=== PATIENT | male | born 1935 | race Caucasian/White ===

== ENCOUNTER → 2017-07-27 09:58 | Outpatient (CLI) | payer MEDICARE, OTHER, SELFPAY ==
--- NOTE | 2017-07-27 | DI.US.S_ITS ---
PROCEDURE: US CAROTID DOPPLER BI INDICATIONS: I65.29 TECHNIQUE: Color and pulse Doppler interrogation was performed of both carotid systems, with image documentation and velocity measurements. COMPARISON: None. FINDINGS: Stenosis calculations are based on SRU (Society of Radiologists in Ultrasound) criteria. Right side: Brachial blood pressure: 159/91 mm Hg. Common carotid artery peak systolic velocity: 67 cm/sec. Internal carotid artery peak systolic velocity: 165 cm/sec. Internal carotid artery end diastolic velocity: 29 cm/sec. External carotid artery peak systolic velocity: 106 cm/sec. ICA/CCA peak systolic ratio: 2.45. Jeffries scale imaging description: Moderate echogenic plaque at the bifurcation Percent internal carotid artery stenosis: 50-69%. Vertebral artery: Flow direction is antegrade. Left side: Brachial blood pressure: 154/94 mm Hg. Common carotid artery peak systolic velocity: 96 cm/sec. Internal carotid artery peak systolic velocity: 85 cm/sec. Internal carotid artery end diastolic velocity: 24 cm/sec. External carotid artery peak systolic velocity: 81 cm/sec. ICA/CCA peak systolic ratio: 0.89. Jeffries scale imaging description: Moderate calcific plaque at the bifurcation Percent internal carotid artery stenosis: Less than 50%. Vertebral artery: Flow direction is antegrade. IMPRESSION: 1. 50-69% right internal carotid artery stenosis. 2. Less than 50% left internal carotid artery stenosis. 3. Antegrade vertebral artery flow bilaterally. Dictated by: Huy Ferrera M.D. on 07/27/2017 at 14:50 Approved by: Huy Ferrera M.D. on 07/27/2017 at 14:52
== END ==
PROVIDERS: Family Provider Neurological Surgery; PCP Internal Medicine; Visit Provider Internal Medicine
DX: I65.21 Occlusion and stenosis of right carotid artery (principal)
CPT/HCPCS: 93880

== ENCOUNTER 2018-06-06 19:16 | Emergency (ER) | payer MEDICARE, OTHER, SELFPAY ==
[2018-06-06 19:21] VITALS: BP 135/91; PULSE 83; RESP 18; TEMP 37.5; O2SAT 94; BMI 29.0
--- NOTE | 2018-06-06 20:33 | ED.FEVER ---
HPI - Fever General Chief Complaint: Fever Stated Complaint: FEVER, DECREASED MOBILITY, DENTAL PAIN Time Seen by Provider: 06/06/18 19:50 Source: patient and family Mode of arrival: ambulatory Limitations: no limitations History of Present Illness HPI Narrative: 82-year-old male former smoker presents with the chief complaint of a low-grade fever, some mild right-sided dental pain and feeling a bit under the weather for the past day or so. He has no headache or sore throat. He denies any facial pain or intraoral inflammation or drainage. He denies chest pain or shortness of breath. He has had no cough nor nausea, vomiting or diarrhea. He denies any abdominal pain nor dysuria, frequency or urgency. He does feel slightly constipated and has not had a solid bowel movement in the past day or 2. The 5 weeks ago the patient had a carotid endarterectomy while traveling in [place] and has done quite well in the aftermath. He denies any pain, swelling, redness or drainage overlying the surgical site. He denies any focal neurologic findings such as blurred vision, trouble with speech nor extremity numbness, weakness or tingling. MD complaint: fever Onset (ago): hour(s) Maximum Temperature: 101 F Temperature Source: oral Context: recent travel Associated symptoms: other (dental pain) Relieving factors: acetaminophen Exacerbating factors: nothing Treatments prior to arrival fever: acetaminophen Related Data Home Medications Medication Instructions Recorded Confirmed acetaminophen 1 tab PO PRN #0 10/28/10 07/11/17 aspirin [Aspirin Low Dose] 81 mg PO DAILY #0 08/05/12 07/11/17 esomeprazole magnesium [Nexium] 20 mg PO QDAY #0 08/05/12 07/11/17 sildenafil [Viagra] 25 mg PO PRN PRN #0 08/05/12 07/11/17 tamsulosin [Flomax] 0.4 mg PO HS #0 08/05/12 07/11/17 naproxen 250 mg PO Q12H PRN #0 01/26/16 07/11/17 Sustane Eye Drops 1 drp OPHTHALMIC (EYE) PRN PRN 07/11/17 07/11/17 epinephrine 0.3 ml IM PRN PRN 07/11/17 07/11/17 quinapril 20 mg PO QDAY 07/11/17 07/11/17 tadalafil [Cialis] 5 mg PO QDAY 07/11/17 07/11/17 Allergies Allergy/AdvReac Type Severity Reaction Status Date / Time No Known Drug Allergies Allergy Unknown UNKNOWN Unverified 06/14/17 12:03 ANAPHYLACTIC DRUG ALLERGY hydromorphone [HYDROMORPHONE] AdvReac Severe SEVERE Unverified 06/14/17 12:03 DROP IN BLOOD PRESSURE [id number] Reductase AdvReac Severe CRAMPS Unverified 06/14/17 12:03 Inhibitor [[id number] REDUCTASE INHIBITOR] Review of Systems Review of Systems ROS Unobtainable: All systems reviewed & are unremarkable except as noted in HPI and below Constitutional Denies chills, Reports fever(s), Denies lethargy and Reports weakness Eyes Denies change in vision, Denies eye discharge, Denies irritation and Denies loss of vision ENT Ears, Nose, Mouth, and Throat: Denies change in voice, Reports dental pain, Denies neck pain and Denies sore throat Cardiovascular Denies chest pain, Denies irregular heart rhythm, Denies lightheadedness, Denies palpitations, Denies dyspnea, Denies dyspnea on exertion and Denies orthopnea Respiratory Denies cough, Denies dyspnea, Denies dyspnea on exertion and Denies wheezing Gastrointestinal Gastrointestinal: Denies abdominal pain, Denies change in bowel habits, Denies diarrhea, Denies nausea and Denies vomiting Genitourinary Denies hematuria, Denies flank pain, Denies urinary incontinence and Denies urinary urgency Musculoskeletal Denies neck pain Integumentary/Breasts Denies pruritus, Denies erythema, Denies rash and Denies wounds Neurologic Denies confusion, Denies loss of vision and Reports weakness Psychiatric Denies anxiety, Denies confusion, Denies depression, Denies homicidal ideation and Denies suicidal ideation Endocrine Denies palpitations Hematologic/Lymphatic Denies easy bruising Allergic/Immunologic Denies wheezing PFSH Social History Smoking Status: Former smoker Social History Smoking Status: Former smoker Exam Narrative Exam Narrative: GENERAL: 82-year-old male appears stated age. He is in no obvious severe distress HEAD: Atraumatic. Normocephalic. No temporal or scalp tenderness. EYES: Pupils equal round and reactive. Extraocular motions intact. No scleral icterus. No injection or drainage. ENT: dry mucous membranes. Nose without bleeding, purulent drainage or septal hematoma. Throat without erythema, tonsillar hypertrophy or exudate. Uvula midline. Airway patent. NECK: Trachea midline. No JVD or lymphadenopathy. CEA incision is C/D/I. No pain, swelling, redness, warmth, or drainage/dehiscence CARDIOVASCULAR: Regular rate and rhythm without murmurs, gallops, or rubs. RESPIRATORY: Clear to auscultation. Breath sounds equal bilaterally. No wheezes, rales, or rhonchi. GASTROINTESTINAL: Abdomen soft, non-tender, nondistended. No hepato-splenomegaly, or palpable masses. No guarding. EXTREMITIES: No clubbing, cyanosis, or edema. No joint tenderness, effusion, or edema noted. BACK: Nontender without deformity or crepitance. No flank tenderness. NEURO: AOx3. SKIN: No rash or erythema. Initial Vital Signs Initial Vital Signs: Vital Signs Temperature 99.5 F 06/06/18 19:21 Pulse Rate 83 06/06/18 19:21 Respiratory Rate 18 06/06/18 19:21 Blood Pressure 135/91 H 06/06/18 19:21 Pulse Oximetry 94 06/06/18 19:21 Course Orders Ordered: ED Orders 06/06/18 20:40 XR acute abdomen series Stat 06/06/18 21:06 Basic Metabolic Panel Stat Complete Blood Count AUTO DIFF Stat Lactate (Lactic Acid) Stat Procalcitonin Stat 06/06/18 21:08 Influenza A and B by PCR Rapid Stat 06/06/18 21:50 Blood Culture Stat 06/06/18 23:14 Urine Microscopic Stat Discontinued Medications Sodium Chloride (Normal Saline 0.9%) 1,000 mls @ 1,000 mls/hr IV BOLUS ONE Stop: 06/06/18 21:38 Last Infusion: 06/06/18 22:49 Dose: 0 mls/hr Admin: 06/06/18 21:22 Dose: 1,000 mls/hr Ondansetron HCl (Zofran) 4 mg IV Q4HR PRN PRN Reason: Nausea And Vomiting Reevaluation(s) Reevaluation #1: Patient feels much better after above-stated therapies. He is able to ambulate to the bathroom without difficulty Vital Signs - 8 hr 06/06/18 21:39 06/06/18 22:00 06/06/18 22:30 Pulse Rate 69 66 65 Respiratory Rate 17 17 17 Blood Pressure [Right Arm] 123/78 139/76 153/83 H Pulse Oximetry 92 95 97 MDM - Fever Lab Data Result diagrams: 06/06/18 21:06 06/06/18 21:06 Lab Results 06/06/18 06/06/18 06/06/18 Range/Units 21:06 21:06 21:06 WBC 3.2 L (4.5-11.0) X10^3/uL RBC 4.98 (4.5-5.9) X10^6/uL Hgb 15.1 (13.5-17.5) g/dL Hct 45.0 (41-53) % MCV 90.5 (80-100) fL MCH 30.3 (26-34) PG MCHC 33.5 (30-36) % RDW 13.5 (11.6-14.8) % Plt Count 168 (150-400) X10^3/uL Neut % (Auto) 55.2 (50-75) % Lymph % (Auto) 31.3 (25-40) % [place] % (Auto) 12.1 (3-14) % Eos % (Auto) 0.9 L (2-4) % Baso % (Auto) 0.5 (0-2) % Neut # (Auto) 1800 (4110-5883) /uL Lymph # (Auto) 1000 L (0744-0676) /uL [place] # (Auto) 400 (0-900) /uL Eos # (Auto) 0 (0-450) /uL Baso # (Auto) 0 (0-100) /uL Sodium 138 (137-145) mmol/L Potassium 3.3 L (3.4-5.1) mmol/L Chloride 97 L (98-107) mmol/L Carbon Dioxide 33 H (22-32) mmol/L BUN 22 H (9-20) mg/dL Creatinine 0.90 (0.66-1.25) mg/dL Estimated GFR > 60.0 (>60) mL/min BUN/Creatinine Ratio 24.4 H (6-22) Glucose 117 H (80-110) mg/dL Lactate 1.0 (0.7-2.1) mmol/L Calcium 8.9 (8.4-10.2) mg/dL Procalcitonin (<0.5) ng/mL Urine RBC (0-5/HPF) Urine WBC (0-5/HPF) Urine Bacteria (None) Urine Mucus (Negative) Ur Culture Indicated? Influenza A & B (PCR) (Negative) 06/06/18 06/06/18 06/06/18 Range/Units 21:06 21:08 23:14 WBC (4.5-11.0) X10^3/uL RBC (4.5-5.9) X10^6/uL Hgb (13.5-17.5) g/dL Hct (41-53) % MCV (80-100) fL MCH (26-34) PG MCHC (30-36) % RDW (11.6-14.8) % Plt Count (150-400) X10^3/uL Neut % (Auto) (50-75) % Lymph % (Auto) (25-40) % [place] % (Auto) (3-14) % Eos % (Auto) (2-4) % Baso % (Auto) (0-2) % Neut # (Auto) (4225-0428) /uL Lymph # (Auto) (4350-0777) /uL [place] # (Auto) (0-900) /uL Eos # (Auto) (0-450) /uL Baso # (Auto) (0-100) /uL Sodium (137-145) mmol/L Potassium (3.4-5.1) mmol/L Chloride (98-107) mmol/L Carbon Dioxide (22-32) mmol/L BUN (9-20) mg/dL Creatinine (0.66-1.25) mg/dL Estimated GFR (>60) mL/min BUN/Creatinine Ratio (6-22) Glucose (80-110) mg/dL Lactate (0.7-2.1) mmol/L Calcium (8.4-10.2) mg/dL Procalcitonin 0.12 (<0.5) ng/mL Urine RBC 5-10/hpf H (0-5/HPF) Urine WBC None seen (0-5/HPF) Urine Bacteria None seen (None) Urine Mucus 2+ H (Negative) Ur Culture Indicated? Cult not indicated Influenza A & B (PCR) Negative (Negative) Urine Dip Bedside Urine Glucose Negative Bedside Urine Bilirubin - Negative Bedside Urine Ketone +/- 5 Urine Specific [place] 1.020 Bedside Urine Occult Blood ++ Bedside Urine pH 6.0 Bedside Urine Protein + 30 Bedside Urine Urobilinogen +/- 1mg Bedside Urine Nitrite - Negative Bedside Urine Leukocytes - Negative Esterase MDM Narrative Medical decision making narrative: 82-year-old male with low-grade fever and very minimal specific symptoms. odontogenic infection considered but there is no facial swelling, obvious dental abscess or drainage. postoperative complication of CEA considered but patient has no pain, focal neurologic deficits, redness, warmth or drainage overlying the incisions. Influenza considered but thought less likely given lack of findings. A pneumonia considered but thought less likely given lack of purulence cough or findings on chest x-ray. Urinary tract infection considered but thought less likely given lack of findings in urine. Most likely etiology at this point seems to be a viral infection, perhaps picked up while traveling home from [place]. Patient feels tremendous relief after receiving some IV fluids. Constipation is likely due to lack of appropriate hydration. Patient has been given extensive return precautions and both he and demonstrated their understanding of these precautions by their ability to recite them back. They plan to contact their PCP tomorrow for close follow up Discharge Plan Departure Patient Disposition: Home Clinical Impression: Fever of unknown origin, Systemic viral illness Discharge Date/Time: 06/07/18 00:15 Interventions: ED Discharge Assessment Last Done: 06/07/18 00:14 Instructions: Fever of Unknown Origin Activity Restrictions/Additional Instructions: *You have been diagnosed with [fever without definite source, likely viral origin ] *What to do: * continue to take medications as directed *Follow up with your primary care provider in 2-3 days, call for an appointment. Let them know you were seen in the Emergency Department and that we ask that you be seen in follow up *Return to ER if you should have any new, worsening or concerning symptoms, such as [shaking chills, chest pain, shortness of breath, vomiting, other bothersome symptoms ] Prescriptions: No Action acetaminophen 1 tab PO PRN Qty: 0 RF: 0 sildenafil [Viagra] 25 MG tablet 25 mg PO PRN PRN (Reason: Sexual Activity) Qty: 0 RF: 0 tamsulosin [Flomax] 0.4 MG capsule,extended release 24hr 0.4 mg PO HS Qty: 0 RF: 0 esomeprazole magnesium [Nexium] 40 MG capsule,delayed release(DR/EC) 20 mg PO QDAY Qty: 0 RF: 0 aspirin [Aspirin Low Dose] 81 mg Tablet,Delayed Release (Dr/Ec) 81 mg PO DAILY Qty: 0 RF: 0 naproxen 250 MG tablet 250 mg PO Q12H PRN (Reason: Pain, Mild) Qty: 0 RF: 0 epinephrine 0.3 mg/0.3 mL auto-injector 0.3 ml IM PRN PRN (Reason: Allergic Reaction) RF: 0 tadalafil [Cialis] 5 mg tablet 5 mg PO QDAY RF: 0 quinapril 20 mg tablet 20 mg PO QDAY RF: 0 Sustane Eye Drops drops 1 drp ophthalmic (eye) PRN PRN (Reason: Dry Eyes) RF: 0 Referrals: Ron Manriquez MD [Primary Care Provider] -
--- NOTE | 2018-06-06 20:40 | DI.RAD.S_ITS ---
PROCEDURE: XR ACUTE ABDOMEN SERIES INDICATIONS: constipation, fever, abdominal pain TECHNIQUE: One view chest and two views of the abdomen were acquired. COMPARISON: [facility], CR, XR CHEST 2 VIEWS, 02/08/2018, 10:00. [facility], CR, ABDOMEN 2 VIEW, 04/02/2015, 10:22. [facility], CR, ABDOMEN ACUTE SERIES, 03/30/2015, 17:30. FINDINGS: Surgical changes and devices: None. Chest: Lungs are clear. Heart size is normal. No pleural effusions. No pneumoperitoneum. Abdomen: Bowel gas pattern is within normal limits. There is a small to moderate amount of stool within the cecum and rectosigmoid colon suggestive of constipation. No definite evidence of bowel obstruction. No suspicious calcifications. Bones: No suspicious bony lesions. IMPRESSION: 1. Small to moderate amount of stool in the cecum and rectosigmoid colon compatible with patient's history of constipation. No definite evidence of bowel obstruction. Dictated by: Shivam Rossi M.D. on 06/06/2018 at 21:10 Approved by: Shivam Rossi M.D. on 06/06/2018 at 21:12
[2018-06-06] MEDS: SODIUM CHLORIDE 0.9% 1,000 ML 1000 ML IV (21:22)
[2018-06-06 21:27] LABS: Add Manual Diff / Slide Review NO; Basophils Absolute Auto 0 /uL (0-100); Basophils Percent Auto 0.5 % (0-2); Eosinophils Absolute Auto 0 /uL (0-450); Eosinophils Percent Auto 0.9 % (2-4); Hemoglobin 15.1 g/dL (13.5-17.5); Lymphocytes Absolute Auto 1000 /uL (1100-4500); Lymphocytes Percent Auto 31.3 % (25-40); Mean Corpuscular HGB Conc 33.5 % (30-36); Mean Corpuscular Hemoglobin 30.3 PG (26-34); Mean Corpuscular Volume 90.5 fL (80-100); Monocytes Absolute Auto 400 /uL (0-900); Monocytes Percent Auto 12.1 % (3-14); Neutrophils Absolute Auto 1800 /uL (1500-7000); Neutrophils Percent Auto 55.2 % (50-75); Platelet Count 168 X10^3/uL (150-400); Red Blood Cell Count 4.98 X10^6/uL (4.5-5.9); Red Cell Distribution Width 13.5 % (11.6-14.8); White Blood Cell Count 3.2 X10^3/uL (4.5-11.0)
[2018-06-06 21:35] LABS: BUN Creatinine Ratio 24.4 (6-22); Blood Urea Nitrogen 22 mg/dL (9-20); Calcium 8.9 mg/dL (8.4-10.2); Carbon Dioxide 33 mmol/L (22-32); Chloride 97 mmol/L (98-107); Estimated Glomerular Filt Rate > 60.0 mL/min (>60); Glucose 117 mg/dL (80-110); HEMOLYSIS 15 (0-50); Potassium 3.3 mmol/L (3.4-5.1); Sodium 138 mmol/L (137-145)
[2018-06-06 21:39] VITALS: BP 123/78; PULSE 69; RESP 17; O2SAT 92
[2018-06-06 21:53] LABS: Influenza A and B by PCR Rapid Negative (Negative)
[2018-06-06 21:55] LABS: Procalcitonin 0.12 ng/mL (<0.5)
[2018-06-06 22:00] VITALS: BP 139/76; PULSE 66; RESP 17; O2SAT 95
[2018-06-06 22:30] VITALS: BP 153/83; PULSE 65; RESP 17; O2SAT 97
[2018-06-06 23:15] LABS: Bacteria Urine None Seen; WBC Urine None Seen (0-5/HPF)
[2018-06-06 23:55] LABS: RBC Urine 5-10/HPF (0-5/HPF)
[2018-06-06 23:56] LABS: Culture Indicated Urine Cult Not Indicated; Mucus Urine 2+ (Negative)
--- NOTE | 2018-06-07 03:58 | ED_ITS ---
HPI - Fever General Chief Complaint: Fever Stated Complaint: FEVER, DECREASED MOBILITY, DENTAL PAIN Time Seen by Provider: 06/06/18 19:50 Source: patient and family Mode of arrival: ambulatory Limitations: no limitations History of Present Illness HPI Narrative: 82-year-old male former smoker presents with the chief complaint of a low-grade fever, some mild right-sided dental pain and feeling a bit under the weather for the past day or so. He has no headache or sore throat. He denies any facial pain or intraoral inflammation or drainage. He denies chest pain or shortness of breath. He has had no cough nor nausea, vomiting or diarrhea. He denies any abdominal pain nor dysuria, frequency or urgency. He d oes feel slightly constipated and has not had a solid bowel movement in the past day or 2. The 5 weeks ago the patient had a carotid endarterectomy while traveling in [place] and has done quite well in the aftermath. He denies any pain, swelling, redness or drainage overlying the surgical site. He denies any focal neurologic findings such as blurred vision, trouble with speech nor extremity numbness, weakness or tingling. MD complaint: fever Onset (ago): hour(s) Maximum Temperature: 101 F Temperature Source: oral Context: recent travel Associated symptoms: other (dental pain) Relieving factors: acetaminophen Exacerbating factors: nothing Treatments prior to arrival fever: acetaminophen Related Data Home Medications Medication Instructions Recorded Confirmed acetaminophen 1 tab PO PRN #0 10/28/10 07/11/17 aspirin [Aspirin Low Dose] 81 mg PO DAILY #0 08/05/12 07/11/17 esomeprazole magnesium [Nexium] 20 mg PO QDAY #0 08/05/12 07/11/17 sildenafil [Viagra] 25 mg PO PRN PRN #0 08/05/12 07/11/17 tamsulosin [Flomax] 0.4 mg PO HS #0 08/05/12 07/11/17 naproxen 250 mg PO Q12H PRN #0 01/26/16 07/11/17 Sustane Eye Drops 1 drp OPHTHALMIC (EYE) PRN PRN 07/11/17 07/11/17 epinephrine 0.3 ml IM PRN PRN 07/11/17 07/11/17 quinapril 20 mg PO QDAY 07/11/17 07/11/17 tadalafil [Cialis] 5 mg PO QDAY 07/11/17 07/11/17 Allergies Allergy/AdvReac Type Severity Reaction Status Date / Time No Known Drug Allergies Allergy Unknown UNKNOWN Unverified 06/14/17 12:03 ANAPHYLACTIC DRUG ALLERGY hydromorphone [HYDROMORPHONE] AdvReac Severe SEVERE Unverified 06/14/17 12:03 DROP IN BLOOD PRESSURE Fhpzles-Ptq-Wgn Reductase AdvReac Severe CRAMPS Unverified 06/14/17 12:03 Inhibitor [[id number] REDUCTASE INHIBITOR] Review of Systems Review of Systems ROS Unobtainable: All systems reviewed & are unremarkable except as noted in HPI and below Constitutional Denies chills, Reports fever(s), Denies lethargy and Reports weakness Eyes Denies change in vision, Denies eye discharge, Denies irritation and Denies loss of vision ENT Ears, Nose, Mouth, and Throat: Denies change in voice, Reports dental pain, Denies neck pain and Denies sore throat Cardiovascular Denies chest pain, Denies irregular heart rhythm, Denies lightheadedness, Denies palpitations, Denies dyspnea, Denies dyspnea on exertion and Denies orthopnea Respiratory Denies cough, Denies dyspnea, Denies dyspnea on exertion and Denies wheezing Gastrointestinal Gastrointestinal: Denies abdominal pain, Denies change in bowel habits, Denies diarrhea, Denies nausea and Denies vomiting Genitourinary Denies hematuria, Denies flank pain, Denies urinary incontinence and Denies uri nary urgency Musculoskeletal Denies neck pain Integumentary/Breasts Denies pruritus, Denies erythema, Denies rash and Denies wounds Neurologic Denies confusion, Denies loss of vision and Reports weakness Psychiatric Denies anxiety, Denies confusion, Denies depression, Denies homicidal ideation and Denies suicidal ideation Endocrine Denies palpitations Hematologic/Lymphatic Denies easy bruising Allergic/Immunologic Denies wheezing PFSH Social History Smoking Status: Former smoker Social History Smoking Status: Former smoker Exam Narrative Exam Narrative: GENERAL: 82-year-old male appears stated age. He is in no obvious severe distress HEAD: Atraumatic. Normocephalic. No temporal or scalp tenderness. EYES: Pupils equal round and reactive. Extraocular motions intact. No scleral icterus. No injection or drainage. ENT: dry mucous membranes. Nose without bleeding, purulent drainage or septal hematoma. Throat without erythema, tonsillar hypertrophy or exudate. Uvula mi dline. Airway patent. NECK: Trachea midline. No JVD or lymphadenopathy. CEA incision is C/D/I. No pa in, swelling, redness, warmth, or drainage/dehiscence CARDIOVASCULAR: Regular rate and rhythm without murmurs, gallops, or rubs. RESPIRATORY: Clear to auscultation. Breath sounds equal bilaterally. No wheezes, rales, or rhonchi. GASTROINTESTINAL: Abdomen soft, non-tender, nondistended. No hepato- splenomegaly, or palpable masses. No guarding. EXTREMITIES: No clubbing, cyanosis, or edema. No joint tenderness, effusion, or edema noted. BACK: Nontender without deformity or crepitance. No flank tenderness. NEURO: AOx3. SKIN: No rash or erythema. Initial Vital Signs Initial Vital Signs: Vital Signs Temperature 99.5 F 06/06/18 19:21 Pulse Rate 83 06/06/18 19:21 Respiratory Rate 18 06/06/18 19:21 Blood Pressure 135/91 H 06/06/18 19:21 Pulse Oximetry 94 06/06/18 19:21 Course Orders Ordered: ED Orders 06/06/18 20:40 XR acute abdomen series Stat 06/06/18 21:06 Basic Metabolic Panel Stat Complete Blood Count AUTO DIFF Stat Lactate (Lactic Acid) Stat Procalcitonin Stat 06/06/18 21:08 Influenza A and B by PCR Rapid Stat 06/06/18 21:50 Blood Culture Stat 06/06/18 23:14 Urine Microscopic Stat Discontinued Medications Sodium Chloride (Normal Saline 0.9%) 1,000 mls @ 1,000 mls/hr IV BOLUS ONE Stop: 06/06/18 21:38 Last Infusion: 06/06/18 22:49 Dose: 0 mls/hr Admin: 06/06/18 21:22 Dose: 1,000 mls/hr Ondansetron HCl (Zofran) 4 mg IV Q4HR PRN PRN Reason: Nausea And Vomiting Reevaluation(s) Reevaluation #1: Patient feels much better after above-stated therapies. He is able to ambulate to the bathroom without difficulty Vital Signs - 8 hr 06/06/18 21:39 06/06/18 22:00 06/06/18 22:30 Pulse Rate 69 66 65 Respiratory Rate 17 17 17 Blood Pressure [Right Arm] 123/78 139/76 153/83 H Pulse Oximetry 92 95 97 MDM - Fever Lab Data Result diagrams: 06/06/18 21:06 06/06/18 21:06 Lab Results 06/06/18 06/06/18 06/06/18 Range/Units 21:06 21:06 21:06 WBC 3.2 L (4.5-11.0) X10^3/uL RBC 4.98 (4.5-5.9) X10^6/uL Hgb 15.1 (13.5-17.5) g/dL Hct 45.0 (41-53) % MCV 90.5 (80-100) fL MCH 30.3 (26-34) PG MCHC 33.5 (30-36) % RDW 13.5 (11.6-14.8) % Plt Count 168 (150-400) X10^3/uL Neut % (Auto) 55.2 (50-75) % Lymph % (Auto) 31.3 (25-40) % [place] % (Auto) 12.1 (3-14) % Eos % (Auto) 0.9 L (2-4) % Baso % (Auto) 0.5 (0-2) % Neut # (Auto) 1800 (3284-4144) /uL Lymph # (Auto) 1000 L (5987-4875) /uL [place] # (Auto) 400 (0-900) /uL Eos # (Auto) 0 (0-450) /uL Baso # (Auto) 0 (0-100) /uL Sodium 138 (137-145) mmol/L Potassium 3.3 L (3.4-5.1) mmol/L Chloride 97 L (98-107) mmol/L Carbon Dioxide 33 H (22-32) mmol/L BUN 22 H (9-20) mg/dL Creatinine 0.90 (0.66-1.25) mg/dL Estimated GFR > 60.0 (>60) mL/min BUN/Creatinine Ratio 24.4 H (6-22) Glucose 117 H (80-110) mg/dL Lactate 1.0 (0.7-2.1) mmol/L Calcium 8.9 (8.4-10.2) mg/dL Procalcitonin (<0.5) ng/mL Urine RBC (0-5/HPF) Urine WBC (0-5/HPF) Urine Bacteria (None) Urine Mucus (Negative) Ur Culture Indicated? Influenza A & B (PCR) (Negative) 06/06/18 06/06/18 06/06/18 Range/Units 21:06 21:08 23:14 WBC (4.5-11.0) X10^3/uL RBC (4.5-5.9) X10^6/uL Hgb (13.5-17.5) g/dL Hct (41-53) % MCV (80-100) fL MCH (26-34) PG MCHC (30-36) % RDW (11.6-14.8) % Plt Count (150-400) X10^3/uL Neut % (Auto) (50-75) % Lymph % (Auto) (25-40) % [place] % (Auto) (3-14) % Eos % (Auto) (2-4) % Baso % (Auto) (0-2) % Neut # (Auto) (1061-0484) /uL Lymph # (Auto) (4311-7472) /uL [place] # (Auto) (0-900) /uL Eos # (Auto) (0-450) /uL Baso # (Auto) (0-100) /uL Sodium (137-145) mmol/L Potassium (3.4-5.1) mmol/L Chloride (98-107) mmol/L Carbon Dioxide (22-32) mmol/L BUN (9-20) mg/dL Creatinine (0.66-1.25) mg/dL Estimated GFR (>60) mL/min BUN/Creatinine Ratio (6-22) Glucose (80-110) mg/dL Lactate (0.7-2.1) mmol/L Calcium (8.4-10.2) mg/dL Procalcitonin 0.12 (<0.5) ng/mL Urine RBC 5-10/hpf H (0-5/HPF) Urine WBC None seen (0-5/HPF) Urine Bacteria None seen (None) Urine Mucus 2+ H (Negative) Ur Culture Indicated? Cult not indicated Influenza A & B (PCR) Negative (Negative) Urine Dip Bedside Urine Glucose Negative Bedside Urine Bilirubin - Negative Bedside Urine Ketone +/- 5 Urine Specific [place] 1.020 Bedside Urine Occult Blood ++ Bedside Urine pH 6.0 Bedside Urine Protein + 30 Bedside Urine Urobilinogen +/- 1mg Bedside Urine Nitrite - Negative Bedside Urine Leukocytes - Negative Esterase MDM Narrative Medical decision making narrative: 82-year-old male with low-grade fever and very minimal specific symptoms. odontogenic infection considered but there is no facial swelling, obvious dental abscess or drainage. postoperative complication of CEA considered but patient has no pain, focal neurologic deficits, redness, warmth or drainage overlying the incisions. Influenza considered but thought less likely given lack of findings. A pneumonia considered but thought less likely given lack of purulence cough or findings on chest x-ray. Urinary tract infection considered but thought less likely given lack of findings in urine. Most likely etiology at this point seems to be a viral infection, perhaps picked up while traveling home from [place]. Patient feels tremendous relief after receiving some IV fluids. Constipation is likely due to lack of appropriate hydration. Patient has been given extensive return precautions and both he and demonstrated their understanding of these precautions by their ability to recite them back. They plan to contact their PCP tomorrow for close follow up Discharge Plan Departure Patient Disposition: Home Clinical Impression: Fever of unknown origin, Systemic viral illness Discharge Date/Time: 06/07/18 00:15 Interventions: ED Discharge Assessment Last Done: 06/07/18 00:14 Instructions: Fever of Unknown Origin Activity Restrictions/Additional Instructions: *You have been diagnosed with [fever without definite source, likely viral origin ] *What to do: * continue to take medications as directed *Follow up with your primary care provider in 2-3 days, call for an appointment. Let them know you were seen in the Emergency Department and that we ask that you be seen in follow up *Return to ER if you should have any new, worsening or concerning symptoms, such as [shaking chills, chest pain, shortness of breath, vomiting, other bothersome symptoms ] Prescriptions: No Action acetaminophen 1 tab PO PRN Qty: 0 RF: 0 sildenafil [Viagra] 25 MG tablet 25 mg PO PRN PRN (Reason: Sexual Activity) Qty: 0 RF: 0 tamsulosin [Flomax] 0.4 MG capsule,extended release 24hr 0.4 mg PO HS Qty: 0 RF: 0 esomeprazole magnesium [Nexium] 40 MG capsule,delayed release(DR/EC) 20 mg PO QDAY Qty: 0 RF: 0 aspirin [Aspirin Low Dose] 81 mg Tablet,Delayed Release (Dr/Ec) 81 mg PO DAILY Qty: 0 RF: 0 naproxen 250 MG tablet 250 mg PO Q12H PRN (Reason: Pain, Mild) Qty: 0 RF: 0 epinephrine 0.3 mg/0.3 mL auto-injector 0.3 ml IM PRN PRN (Reason: Allergic Reaction) RF: 0 tadalafil [Cialis] 5 mg tablet 5 mg PO QDAY RF: 0 quinapril 20 mg tablet 20 mg PO QDAY RF: 0 Sustane Eye Drops drops 1 drp ophthalmic (eye) PRN PRN (Reason: Dry Eyes) RF: 0 Referrals: Ron Manriquez MD [Primary Care Provider] -
== END 2018-06-07 00:15 | disposition home or self-care (01) ==
PROVIDERS: Emergency Provider Emergency Medicine; Family Provider Neurological Surgery; PCP Internal Medicine
DX: R50.9 Fever, unspecified (principal); B34.9 Viral infection, unspecified; K08.89 Other specified disorders of teeth and supporting structures; K59.00 Constipation, unspecified
CPT/HCPCS: 36415; 36591; 74022; 80048; 81003; 81015; 83605; 84145; 85025; 87040; 87400; 96361; 96374; 99283; 99284

== ENCOUNTER 2018-06-21 10:30 | Outpatient (RCR) | payer MEDICARE, OTHER, SELFPAY ==
[2018-06-04 13:35] VITALS: BP 140/100
--- NOTE | 2018-06-04 14:30 | PT.OIE ---
Current Diagnoses Other cerebrovascular disease (06/04/18) Provider Visit Care Team Role Provider Type Beni Madera MD Family Provider Non-Staff Specialty: Neurosurgery Address: [address] [place] [address], [phone] Email: Ron Manriquez MD Attending Provider Physician Primary Care Provider Specialty: Internal Medicine Address: [address] [place] [address], [id number] Email: Physical Therapy Initial Evaluation PT-OP-A Visit Information Start: 05/31/18 16:07 Freq: Status: Active Protocol: Document 06/04/18 13:35 LRN (Rec: 06/04/18 15:11 LRN [id number]) Out-Patient Physical Therapy Visit Information Visit Information Visit Type Initial Evaluation Visit Note 03/15 Visit Start Time 13:36 Visit Stop Time 14:28 Total Visit Minutes 52 Visit Number 1 Number of SHOPPING INSPECTOR Visits 0 Evaluation Information Evaluation Date 06/04/18 Precautions Precautions Uncontrolled HBP R carotid endarterectomy 2018 Discectomy L5-S1 01/22/2018, pt feeling not recovered from. Hard of hearing PT-OP-B Current Condition Start: 05/31/18 16:07 Freq: Status: Active Protocol: Document 06/04/18 13:35 LRN (Rec: 06/04/18 15:11 LRN [id number]) Current Condition History of Current Condition Onset Date 05/03/2018 Current Complaints Difficulty dressing, walking ( falling), getting in/out of boat. 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 Pt reports mild weakness of the L UE/LE and denies difficulty with swallowing or speech. He reports recent surgery on 2018 for Carotid endarterectomy and spinal stenosis L5 discectomy surgery at 01/22/2018 for which he states he had not recovered from when he had the stroke. He states his blood pressure is not under control but he is taking medications to try and get it under control. Future Testing and Treatments Planned Seeing Oral surgeon for a possible tooth extraction with implant. Treatment Goals Patient/Caregiver Goals Pt goal is to become active, put clothes on with ease because he has trouble putting his leg into his pants when dressing. He wants to be able to feel secure getting on/off his boat with giving SBA and he wants to be able to walk around the boat without falling. Prior Functional Status Baseline Function- ADL's Modified Independent Baseline Function- Mobility Independent Baseline Function- Gait Used cane for gait Baseline Function- Other Needs help finding arm holes when dressing. Current Functional Impairments (Reported) Functional Limitations- ADL's Difficulty dressing. Unstable walking with SPC Difficulty getting in/out of boat Functional Limitations- Mobility/Gait Unsteady, requires use of cane . Personal Factors Other Personal Factors That May Effect Uncontrolled HBP. Therapy/Recovery Has boat that he wants to be able to get in/out of. PT-OP-D Balance Start: 05/31/18 16:07 Freq: Status: Active Protocol: Document 06/04/18 13:35 LRN (Rec: 06/04/18 15:11 LRN [id number]) Balance Tests Single Limb Standing Single Limb- Right 0 Single Limb- Left 0 Downs Balance Assessment Evaluation Sitting to Standing Ability Several Tries w/Hands Unsupported Stance Supervision- 2 minutes Sitting Unsupported, Feet on Floor Safely- 2 minutes Standing to Sitting Ability Assist, Control w/Hands Transfer Ability Safely, Hand Use Unsupported Stance- Eyes Closed Safely, 10 seconds Unsupported Stance- Eyes Open Independent, 1 minute Reaching Forward Standing Safely, 5 inches Pick- Up Object From Floor Supervision Look Behind Shoulder - Standing Turns Sideways Only Turning 360 Degrees Turns slowly, but safely Unsupported Stance, Alternating Feet on Assist to Prevent Fall Stair Unsupported Tandem Stance Balance Lost- Step/Stand Unilateral Leg Stance Lifts Leg/Unable to Hold Total Score Downs Total Score (out of 56 points) 34 Downs Impairment Rating 20 to 39% Impaired (Score 34- 44) Tinetti Balance Assessment Sitting Balance Sitting Balance Steady, safe Arising from Chair Ability to Arise Able, uses arms to help Attempts to Arise Able, requires >1 attempt Standing Balance Immediate Standing Balance Steady with support Standing Balance Steady, wide stance Nudged Response Steady Standing with Eyes Closed Steady Turning Step Pattern Turning 360 Degrees Continuous steps Stability Turning 360 Degrees Steady Sitting Down Sitting Down Uses arms or unsteady Gait and Step Initiation of Gait No hesitancy Right Foot Step Length Does not pass stance ft. Right Foot Step Height Does not clear floor Left Foot Step Length Does not pass stance foot Left Foot Step Height Does not clear floor Step Description Step Symmetry Step length not equal Step Continuity Steps appear continuous Gait Description Path Description Mild/moderate deviation Trunk Description No sway but posturing Walking Stance Heels together Scoring and Interpretation Tinetti Composite Score (points) 16 Tinetti Impairment Rating from Composite 40 to <60% Impaired (Score 12- Score 16) PT-OP-E Functional Tests Start: 05/31/18 16:07 Freq: Status: Active Protocol: Document 06/04/18 13:35 LRN (Rec: 06/04/18 15:11 LRN [id number]) Functional Tests Tinetti Balance and Gait Assessment Balance Score 11 Gait Score 7 Composite Score 18 Balance Score Impairment Rating 20 to <40% Impaired (Score 10- 12) Gait Score Impairment Rating 40 to <60% Impaired (Score 5-7 ) Composite Score Impairment Rating 20 to <40% Impaired (Score 17- 22) PT-OP-G Mobility & Gait Start: 05/31/18 16:07 Freq: Status: Active Protocol: Document 06/04/18 13:35 LRN (Rec: 06/07/18 08:09 LRN [id number]) OP Gait Assessment Gait Gait Assistance Required: Independent Able to Maintain Weight Bearing Status Yes During Gait Assistive Devices Assistive Device None Gait Deviations General Gait Pattern Decreased Stride Length Decreased Feet Clearance Flexed Trunk Narrow Based Gait Factors Limiting Gait Function Factors Limiting Gait Function Decreased Activity Tolerance Decreased Strength Limited Range of Motion Poor Balance PT-OP-H Neuro Start: 05/31/18 16:07 Freq: Status: Active Protocol: Document 06/04/18 13:35 LRN (Rec: 06/04/18 15:11 LRN [id number]) Vital Signs Blood Pressure Sitting Blood Pressure (90/60-120/80 mmHg) 140/100 H Blood Pressure Source Manual Cuff Left Upper Extremity PT-OP-J Posture/Palpation/Skin Start: 05/31/18 16:07 Freq: Status: Active Protocol: Document 06/04/18 13:35 LRN (Rec: 06/04/18 15:11 LRN [id number]) Posture Evaluation Comments Posture Comments Standing pt leans right with upper body in R SB, increased kyphosis with a forward head, decreased lumbar lordosis. PT-OP-K Range of Motion Start: 05/31/18 16:07 Freq: Status: Active Protocol: Document 06/04/18 13:35 LRN (Rec: 06/04/18 15:11 LRN [id number]) Ankle and Foot Goniometric Range of Motion Ankle and Foot Measured in Degrees Right Active Ankle/Foot ROM WFL Yes Testing Position Sitting Left Active Ankle/Foot ROM WFL No Testing Position See comment below Ankle and Foot ROM Limitations ROM Limitations Soft Tissue Tightness Muscle Weakness Comments Decreased L ankle EV & IV by 20%. PT-OP-M Strength Start: 05/31/18 16:07 Freq: Status: Active Protocol: Document 06/04/18 13:35 LRN (Rec: 06/04/18 15:11 LRN [id number]) Trunk Strength Trunk Manual Muscle Testing Testing Position Sitting Comments Manual resistance with strength generally 5/5. Shoulder Strength Shoulder Manual Muscle Testing Right Comments Generally 5/5. Left External Rotation 3 Fair Comments Generally 4/5 except ER as indicated above Ankle/Foot Strength Ankle and Foot Manual Muscle Testing Right Comments Generally 5/5 Left Comments Generally 5/5 PT-OP-T Assessment and Plan Start: 05/31/18 16:07 Freq: Status: Active Protocol: Document 06/04/18 13:35 LRN (Rec: 06/04/18 15:11 LRN [id number]) Physical Therapy Assessment Rehab Potential Rehabilitation Potential Good Evaluation Complexity Number of Personal Factors/Comorbidities 1-2 Number of Body Systems Impaired 4 or More Clinical Presentation at Evaluation Unstable Impairments Impairments Balance Coordination Functional Activities Gait Posture ROM Strength Other Impairments Uncontrolled High Blood Pressure Other Concerns Fall Risk High fall risk per Tinetti Gait score. Age Related Concerns 65+ yrs old Barriers to Rehabilitation Poorly controlled HBP. Recent surgeries: R carotid endarterectomy 2018. Discectomy L5-S1 01/22/2018. Goals HEP Impairment Pt lacks self intermediate exercise program. Fdc Goal (LTG) Pt will be independent in a self care HEP. LTG Duration 08/31/18 Strength Impairment Decreased functional strength for donning pants Fdc Goal (LTG) Pt will be able to don/doff his clothes when dressing without assist (pants, coat). LTG Duration 08/31/18 Gait Impairment Decreased safety with gait per Tinetti Gait score of 5/12 ( 40<60% impaired) Fdc Goal (LTG) Improve safety with gait per Tinetti gait score of no greater than 1>20% impairment. LTG Duration 08/31/18 Balance Impairment Decreased balance per DOWNS Balance is 31/56 (20<40% impaired) Fdc Goal (LTG) Pt will demonstrate improved balance for increased safety with gait per improved DOWNS Balance of 1<20% impaired score. LTG Duration 08/06/18 L Ankle mobility Impairment Decreased L ankle mobility resulting in decreased single leg balance. Short Term Goal (STG) Normalize L ankle active mobility (primarily IV/EV) with improved ability for SLS. STG Duration 06/25/18 Assessment Summary Assessment Pt presents with decreased balance and impaired gait following his R CVA on 2018. He denies speech or swallowing impairment. He demonstrates mild UE/LE weakness, impaired prioprioception and significant balance deficits. He has a fall history with his last noted fall 1 month ago that was on a boat and slippery surface. The pt's therapy may be hindered by his reported uncontrolled high blood pressure, limiting his exercise tolerance. He is also hindered by his recent medical history of R carotid endarterectomy 05/05/2018 and a discectomy L5-S1 01/22/2018. A note on the health history intake form indicates recommended nerve glide therapy, probably for his discectomy. The pt will benefit from skilled physical therapy for LE (ankles, knees) & UE (shoulder ER/IR), balance, gait & proprioceptive training. Physical Therapy Plan Frequency and Duration Frequency of Treatment 2x/Week Plan of Care Start Date 06/04/18 Plan of Care End Date 08/31/18 Therapeutic Interventions Therapeutic Interventions Aquatic Therapy Balance Training Gait Training Home Exercise Program Manual Therapy Neuromuscular Re-education Patient/Caregiver Education Self-Care/Home Management Taping Therapeutic Activities Therapeutic Exercises Modalities Cold Pack/Ice Massage Hot Packs Next Visit Focus/Plan Next Note Type Treatment Note Next Visit Plan Monitor BP, HR, assess TUG. Start with HEP: ankle stretch for DF (and neural glides), IV , EV followed by strengthening of ankle, knees, shoulders ( ER/IR). Start with weight shifting and postural training . Issue HEP. Progress balance and gait training as tolerated while monitoring BP if needed.
[2018-06-14 11:17] VITALS: BP 148/96; BP 164/94
--- NOTE | 2018-06-14 16:53 | PT.OTN ---
Current Diagnoses Other cerebrovascular disease (06/14/18) Physical Therapy Treatment Note PT-OP-A Visit Information Start: 05/31/18 16:07 Freq: Status: Active Protocol: Document 06/14/18 11:17 LRN (Rec: 06/14/18 12:30 LRN [id number]) Out-Patient Physical Therapy Visit Information Visit Information Visit Type Treatment Note Visit Note Present with I/S from NAKITA Rojas for recommending nerve gliding ex. due to residual L5 nerve tension pain . Starting BP: 148/96 BP After 3' Gait and rest: 164 /94 Visit Start Time 11:17 Visit Stop Time 12:07 Total Visit Minutes 50 Visit Number 2 Number of TESTER EQUIPMENT Visits 0 Evaluation Information Evaluation Date 06/04/18 Precautions Precautions Uncontrolled HBP R carotid endarterectomy 2018 Discectomy L5-S1 01/22/2018, pt feeling not recovered from. Hard of hearing PT-OP-B Current Condition Start: 05/31/18 16:07 Freq: Status: Active Protocol: Document 06/04/18 13:35 LRN (Rec: 06/04/18 15:11 LRN [id number]) Current Condition History of Current Condition Onset Date 05/03/2018 Current Complaints Difficulty dressing, walking ( falling), getting in/out of boat. 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 Pt reports mild weakness of the L UE/LE and denies difficulty with swallowing or speech. He reports recent surgery on 2018 for Carotid endarterectomy and spinal stenosis L5 discectomy surgery at 01/22/2018 for which he states he had not recovered from when he had the stroke. He states his blood pressure is not under control but he is taking medications to try and get it under control. Future Testing and Treatments Planned Seeing Oral surgeon for a possible tooth extraction with implant. Treatment Goals Patient/Caregiver Goals Pt goal is to become active, put clothes on with ease because he has trouble putting his leg into his pants when dressing. He wants to be able to feel secure getting on/off his boat with giving SBA and he wants to be able to walk around the boat without falling. Prior Functional Status Baseline Function- ADL's Modified Independent Baseline Function- Mobility Independent Baseline Function- Gait Used cane for gait Baseline Function- Other Needs help finding arm holes when dressing. Current Functional Impairments (Reported) Functional Limitations- ADL's Difficulty dressing. Unstable walking with SPC Difficulty getting in/out of boat Functional Limitations- Mobility/Gait Unsteady, requires use of cane . Personal Factors Other Personal Factors That May Effect Uncontrolled HBP. Therapy/Recovery Has boat that he wants to be able to get in/out of. PT-OP-C Subjective Start: 05/31/18 16:07 Freq: Status: Active Protocol: Document 06/14/18 11:17 LRN (Rec: 06/14/18 12:30 LRN [id number]) OP-PT Subjective Patient Comments Patient Comments States had tooth extraction 2 days ago and still under the weather. States he changed from hydrocodone to IBP. IBP taken @ 7a today (200mg). Patient Questionnaires ABC- Activity Specific Balance Confidence Scale ABC Score 01 PT-OP-D Balance Start: 05/31/18 16:07 Freq: Status: Active Protocol: Document 06/04/18 13:35 LRN (Rec: 06/04/18 15:11 LRN [id number]) Balance Tests Single Limb Standing Single Limb- Right 0 Single Limb- Left 0 Perera Balance Assessment Evaluation Sitting to Standing Ability Several Tries w/Hands Unsupported Stance Supervision- 2 minutes Sitting Unsupported, Feet on Floor Safely- 2 minutes Standing to Sitting Ability Assist, Control w/Hands Transfer Ability Safely, Hand Use Unsupported Stance- Eyes Closed Safely, 10 seconds Unsupported Stance- Eyes Open Independent, 1 minute Reaching Forward Standing Safely, 5 inches Pick- Up Object From Floor Supervision Look Behind Shoulder - Standing Turns Sideways Only Turning 360 Degrees Turns slowly, but safely Unsupported Stance, Alternating Feet on Assist to Prevent Fall Stair Unsupported Tandem Stance Balance Lost- Step/Stand Unilateral Leg Stance Lifts Leg/Unable to Hold Total Score Perera Total Score (out of 56 points) 34 Perera Impairment Rating 20 to 39% Impaired (Score 34- 44) Tinetti Balance Assessment Sitting Balance Sitting Balance Steady, safe Arising from Chair Ability to Arise Able, uses arms to help Attempts to Arise Able, requires >1 attempt Standing Balance Immediate Standing Balance Steady with support Standing Balance Steady, wide stance Nudged Response Steady Standing with Eyes Closed Steady Turning Step Pattern Turning 360 Degrees Continuous steps Stability Turning 360 Degrees Steady Sitting Down Sitting Down Uses arms or unsteady Gait and Step Initiation of Gait No hesitancy Right Foot Step Length Does not pass stance ft. Right Foot Step Height Does not clear floor Left Foot Step Length Does not pass stance foot Left Foot Step Height Does not clear floor Step Description Step Symmetry Step length not equal Step Continuity Steps appear continuous Gait Description Path Description Mild/moderate deviation Trunk Description No sway but posturing Walking Stance Heels together Scoring and Interpretation Tinetti Composite Score (points) 16 Tinetti Impairment Rating from Composite 40 to <60% Impaired (Score 12- Score 16) PT-OP-E Functional Tests Start: 05/31/18 16:07 Freq: Status: Active Protocol: Document 06/14/18 11:17 LRN (Rec: 06/14/18 12:30 LRN [id number]) Functional Tests Timed Up and Go (TUG) Score 21 sec's TUG Impairment Rating 100% Impaired (Score 20) PT-OP-G Mobility & Gait Start: 05/31/18 16:07 Freq: Status: Active Protocol: Document 06/04/18 13:35 LRN (Rec: 06/07/18 08:09 LRN [id number]) OP Gait Assessment Gait Gait Assistance Required: Independent Able to Maintain Weight Bearing Status Yes During Gait Assistive Devices Assistive Device None Gait Deviations General Gait Pattern Decreased Stride Length Decreased Feet Clearance Flexed Trunk Narrow Based Gait Factors Limiting Gait Function Factors Limiting Gait Function Decreased Activity Tolerance Decreased Strength Limited Range of Motion Poor Balance PT-OP-H Neuro Start: 05/31/18 16:07 Freq: Status: Active Protocol: Document 06/14/18 11:17 LRN (Rec: 06/14/18 12:30 LRN [id number]) Vital Signs Blood Pressure Semi-reclined Blood Pressure (90/60-120/80 mmHg) 164/94 H Sitting Blood Pressure (90/60-120/80 mmHg) 148/96 H Blood Pressure Source Manual Cuff PT-OP-J Posture/Palpation/Skin Start: 05/31/18 16:07 Freq: Status: Active Protocol: Document 06/04/18 13:35 LRN (Rec: 06/04/18 15:11 LRN [id number]) Posture Evaluation Comments Posture Comments Standing pt leans right with upper body in R SB, increased kyphosis with a forward head, decreased lumbar lordosis. PT-OP-K Range of Motion Start: 05/31/18 16:07 Freq: Status: Active Protocol: Document 06/04/18 13:35 LRN (Rec: 06/04/18 15:11 LRN [id number]) Ankle and Foot Goniometric Range of Motion Ankle and Foot Measured in Degrees Right Active Ankle/Foot ROM WFL Yes Testing Position Sitting Left Active Ankle/Foot ROM WFL No Testing Position See comment below Ankle and Foot ROM Limitations ROM Limitations Soft Tissue Tightness Muscle Weakness Comments Decreased L ankle EV & IV by 20%. PT-OP-M Strength Start: 05/31/18 16:07 Freq: Status: Active Protocol: Document 06/04/18 13:35 LRN (Rec: 06/04/18 15:11 LRN [id number]) Trunk Strength Trunk Manual Muscle Testing Testing Position Sitting Comments Manual resistance with strength generally 5/5. Shoulder Strength Shoulder Manual Muscle Testing Right Comments Generally 5/5. Left External Rotation 3 Fair Comments Generally 4/5 except ER as indicated above Ankle/Foot Strength Ankle and Foot Manual Muscle Testing Right Comments Generally 5/5 Left Comments Generally 5/5 PT-OP-Q Treatments Start: 05/31/18 16:07 Freq: Status: Active Protocol: Document 06/14/18 11:17 LRN (Rec: 06/14/18 12:30 LRN [id number]) Therapeutic Exercises Supine Exercises LE neural/hamstring stretch Supine Exercise Name Semi reclined Side bilateral Reps/Minutes 8' Comments Extra time taken for training Sitting Exercises LE neural/hamstring stretch Side bilateral Reps/Minutes 8' Gait Training Gait Activity Cardio Description Gait on level Device Used SPC Level of Assistance none Distance/Duration 4' Treatment Focus Endurance Comments Pt R leg became tired Self-Care/Home Management Treatment Education Patient Education Home Exercise Program Activities Self-Care/Home Management Activities Issued & reviewed HEP: LE neural stretch in 3 sup, sit, stand. PT-OP-T Assessment and Plan Start: 05/31/18 16:07 Freq: Status: Active Protocol: Document 06/14/18 11:17 LRN (Rec: 06/14/18 12:30 LRN [id number]) Physical Therapy Assessment Progress Towards Goals Progress Comments L Ankle mobility: Not addressed. Balance: Not addressed. Gait: Initiated activity. Strength: Not addressed. HEP: Neural glide ex. issued. Assessment Summary Assessment Pt is s/p R CVA on 05/03/2018. He presents today with uncontrolled borderline HBP, decreased balance, mild UE/LE weakness, impaired gait. He has had a significant fall history but ambulates into therapy with a steady slow gait using a SPC. His uncontrolled high blood pressure hinders his exercise program. He is also hindered by his recent medical history of R carotid endarterectomy 05/05/2018 and a discectomy L5-S1 01/22/2018. Pt needs further LE (ankles, knees) & UE ( shoulder ER/IR) strengthening; balance, gait & proprioceptive training. Physical Therapy Plan Frequency and Duration Frequency of Treatment 2x/Week Plan of Care Start Date 06/04/18 Plan of Care End Date 08/31/18 Next Visit Focus/Plan Next Note Type Treatment Note Next Visit Plan Monitor BP, HR, & Pt to complete ABC Questionaire. Cont with LE neural glide (L>R ), & stretch to IV, EV followed by strengthening of ankle, knees, shoulders (ER/IR ). Start weight shifting and postural training. HEP as appropriate. Progress balance and gait training as tolerated while monitoring BP.
--- NOTE | 2018-06-19 12:00 | PT.OTN ---
Current Diagnoses Other cerebrovascular disease (06/19/18) Physical Therapy Treatment Note PT-OP-A Visit Information Start: 05/31/18 16:07 Freq: Status: Active Protocol: Document 06/19/18 12:00 GGD (Rec: 06/20/18 15:15 GGD [id number]) Out-Patient Physical Therapy Visit Information Visit Information Visit Type Treatment Note Visit Start Time 12:00 Visit Stop Time 12:45 Total Visit Minutes 45 Visit Number 3 Number of OUTER DIAMETER GRINDER Visits 1 Evaluation Information Evaluation Date 06/04/18 PT-OP-B Current Condition Start: 05/31/18 16:07 Freq: Status: Active Protocol: Document 06/04/18 13:35 LRN (Rec: 06/04/18 15:11 LRN [id number]) Current Condition History of Current Condition Onset Date 05/03/2018 Current Complaints Difficulty dressing, walking ( falling), getting in/out of boat. 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 Pt reports mild weakness of the L UE/LE and denies difficulty with swallowing or speech. He reports recent surgery on 2018 for Carotid endarterectomy and spinal stenosis L5 discectomy surgery at 01/22/2018 for which he states he had not recovered from when he had the stroke. He states his blood pressure is not under control but he is taking medications to try and get it under control. Future Testing and Treatments Planned Seeing Oral surgeon for a possible tooth extraction with implant. Treatment Goals Patient/Caregiver Goals Pt goal is to become active, put clothes on with ease because he has trouble putting his leg into his pants when dressing. He wants to be able to feel secure getting on/off his boat with giving SBA and he wants to be able to walk around the boat without falling. Prior Functional Status Baseline Function- ADL's Modified Independent Baseline Function- Mobility Independent Baseline Function- Gait Used cane for gait Baseline Function- Other Needs help finding arm holes when dressing. Current Functional Impairments (Reported) Functional Limitations- ADL's Difficulty dressing. Unstable walking with SPC Difficulty getting in/out of boat Functional Limitations- Mobility/Gait Unsteady, requires use of cane . Personal Factors Other Personal Factors That May Effect Uncontrolled HBP. Therapy/Recovery Has boat that he wants to be able to get in/out of. PT-OP-C Subjective Start: 05/31/18 16:07 Freq: Status: Active Protocol: Document 06/19/18 12:00 GGD (Rec: 06/20/18 15:15 GGD [id number]) OP-PT Subjective Patient Comments Patient Comments Pt state he been doing his HEP . PT-OP-D Balance Start: 05/31/18 16:07 Freq: Status: Active Protocol: Document 06/04/18 13:35 LRN (Rec: 06/04/18 15:11 LRN [id number]) Balance Tests Single Limb Standing Single Limb- Right 0 Single Limb- Left 0 Downs Balance Assessment Evaluation Sitting to Standing Ability Several Tries w/Hands Unsupported Stance Supervision- 2 minutes Sitting Unsupported, Feet on Floor Safely- 2 minutes Standing to Sitting Ability Assist, Control w/Hands Transfer Ability Safely, Hand Use Unsupported Stance- Eyes Closed Safely, 10 seconds Unsupported Stance- Eyes Open Independent, 1 minute Reaching Forward Standing Safely, 5 inches Pick- Up Object From Floor Supervision Look Behind Shoulder - Standing Turns Sideways Only Turning 360 Degrees Turns slowly, but safely Unsupported Stance, Alternating Feet on Assist to Prevent Fall Stair Unsupported Tandem Stance Balance Lost- Step/Stand Unilateral Leg Stance Lifts Leg/Unable to Hold Total Score Downs Total Score (out of 56 points) 34 Downs Impairment Rating 20 to 39% Impaired (Score 34- 44) Tinetti Balance Assessment Sitting Balance Sitting Balance Steady, safe Arising from Chair Ability to Arise Able, uses arms to help Attempts to Arise Able, requires >1 attempt Standing Balance Immediate Standing Balance Steady with support Standing Balance Steady, wide stance Nudged Response Steady Standing with Eyes Closed Steady Turning Step Pattern Turning 360 Degrees Continuous steps Stability Turning 360 Degrees Steady Sitting Down Sitting Down Uses arms or unsteady Gait and Step Initiation of Gait No hesitancy Right Foot Step Length Does not pass stance ft. Right Foot Step Height Does not clear floor Left Foot Step Length Does not pass stance foot Left Foot Step Height Does not clear floor Step Description Step Symmetry Step length not equal Step Continuity Steps appear continuous Gait Description Path Description Mild/moderate deviation Trunk Description No sway but posturing Walking Stance Heels together Scoring and Interpretation Tinetti Composite Score (points) 16 Tinetti Impairment Rating from Composite 40 to <60% Impaired (Score 12- Score 16) PT-OP-E Functional Tests Start: 05/31/18 16:07 Freq: Status: Active Protocol: Document 06/14/18 11:17 LRN (Rec: 06/14/18 12:30 LRN [id number]) Functional Tests Timed Up and Go (TUG) Score 21 sec's TUG Impairment Rating 100% Impaired (Score 20) PT-OP-G Mobility & Gait Start: 05/31/18 16:07 Freq: Status: Active Protocol: Document 06/04/18 13:35 LRN (Rec: 06/07/18 08:09 LRN [id number]) OP Gait Assessment Gait Gait Assistance Required: Independent Able to Maintain Weight Bearing Status Yes During Gait Assistive Devices Assistive Device None Gait Deviations General Gait Pattern Decreased Stride Length Decreased Feet Clearance Flexed Trunk Narrow Based Gait Factors Limiting Gait Function Factors Limiting Gait Function Decreased Activity Tolerance Decreased Strength Limited Range of Motion Poor Balance PT-OP-H Neuro Start: 05/31/18 16:07 Freq: Status: Active Protocol: Document 06/14/18 11:17 LRN (Rec: 06/14/18 12:30 LRN [id number]) Vital Signs Blood Pressure Semi-reclined Blood Pressure (90/60-120/80 mmHg) 164/94 H Sitting Blood Pressure (90/60-120/80 mmHg) 148/96 H Blood Pressure Source Manual Cuff PT-OP-J Posture/Palpation/Skin Start: 05/31/18 16:07 Freq: Status: Active Protocol: Document 06/04/18 13:35 LRN (Rec: 06/04/18 15:11 LRN [id number]) Posture Evaluation Comments Posture Comments Standing pt leans right with upper body in R SB, increased kyphosis with a forward head, decreased lumbar lordosis. PT-OP-K Range of Motion Start: 05/31/18 16:07 Freq: Status: Active Protocol: Document 06/04/18 13:35 LRN (Rec: 06/04/18 15:11 LRN [id number]) Ankle and Foot Goniometric Range of Motion Ankle and Foot Measured in Degrees Right Active Ankle/Foot ROM WFL Yes Testing Position Sitting Left Active Ankle/Foot ROM WFL No Testing Position See comment below Ankle and Foot ROM Limitations ROM Limitations Soft Tissue Tightness Muscle Weakness Comments Decreased L ankle EV & IV by 20%. PT-OP-M Strength Start: 05/31/18 16:07 Freq: Status: Active Protocol: Document 06/04/18 13:35 LRN (Rec: 06/04/18 15:11 LRN [id number]) Trunk Strength Trunk Manual Muscle Testing Testing Position Sitting Comments Manual resistance with strength generally 5/5. Shoulder Strength Shoulder Manual Muscle Testing Right Comments Generally 5/5. Left External Rotation 3 Fair Comments Generally 4/5 except ER as indicated above Ankle/Foot Strength Ankle and Foot Manual Muscle Testing Right Comments Generally 5/5 Left Comments Generally 5/5 PT-OP-Q Treatments Start: 05/31/18 16:07 Freq: Status: Active Protocol: Document 06/19/18 12:00 GGD (Rec: 06/20/18 15:15 GGD [email or web address]) Therapeutic Exercises Supine Exercises SLR Supine Exercise Name SLR Side bilateral Reps/Minutes 10 x each LE neural/hamstring stretch Supine Exercise Name Semi reclined Side bilateral Reps/Minutes 4 Comments Extra time taken for training Sitting Exercises ankle strengthening Sitting Exercise Name Ankle EV, IV, DF, PF Side bilateral Resistance Level 1 Equipment Used thara band Reps/Minutes 10x each Hip Abduction Side bilateral Resistance Level 3 Equipment Used Thara band Reps/Minutes 20 x Hamstring curl Side bilateral Resistance Level 3 Equipment Used Thara band Reps/Minutes 20 x LAQ Sitting Exercise Name LAQ Side bilateral Reps/Minutes 10 each LE neural/hamstring stretch Side bilateral Reps/Minutes 4 Standing Exercises sit to stand Standing Exercise Name from mat table Side bilateral Reps/Minutes 10 x Comments without UE support Gait Training Gait Activity Cardio Description Gait on level Device Used SPC Level of Assistance none Distance/Duration 4' Neuro Re-Education Treatment Balance Activities weight shift Details weight shift standing Reps/Duration 5 PT-OP-T Assessment and Plan Start: 05/31/18 16:07 Freq: Status: Active Protocol: Document 06/19/18 12:00 GGD (Rec: 06/20/18 15:15 GGD [id number]) Physical Therapy Assessment Goals HEP Impairment Pt lacks self mcc exercise program. Pay Station Department Manager Goal (LTG) Pt will be independent in a self care HEP. LTG Duration 08/31/18 Strength Impairment Decreased functional strength for donning pants Pay Station Department Manager Goal (LTG) Pt will be able to don/doff his clothes when dressing without assist (pants, coat). LTG Duration 08/31/18 Gait Impairment Decreased safety with gait per Tinetti Gait score of 5/12 ( 40<60% impaired) Pay Station Department Manager Goal (LTG) Improve safety with gait per Tinetti gait score of no greater than 1>20% impairment. LTG Duration 08/31/18 Balance Impairment Decreased balance per DOWNS Balance is 31/56 (20<40% impaired) Snf Goal (LTG) Pt will demonstrate improved balance for increased safety with gait per improved DOWNS Balance of 1<20% impaired score. LTG Duration 08/06/18 L Ankle mobility Impairment Decreased L ankle mobility resulting in decreased single leg balance. Short Term Goal (STG) Normalize L ankle active mobility (primarily IV/EV) with improved ability for SLS. STG Duration 06/25/18 Assessment Summary Assessment Pt slow moving with gait. He had mild unsteadiness with weight shift. He did fatigue with sit to stand strengthing. Physical Therapy Plan Frequency and Duration Frequency of Treatment 2x/Week Plan of Care Start Date 06/04/18 Plan of Care End Date 08/31/18 Next Visit Focus/Plan Next Note Type Treatment Note Next Visit Plan Monitor BP, HR, & Pt to complete ABC Questionaire. Cont with LE neural glide (L>R ), & stretch to IV, EV followed by strengthening of ankle, knees, shoulders (ER/IR ). Start weight shifting and postural training. HEP as appropriate. Progress balance and gait training as tolerated while monitoring BP.
--- NOTE | 2018-06-21 13:33 | PT.OTN ---
Current Diagnoses Other cerebrovascular disease (06/21/18) Physical Therapy Treatment Note PT-OP-A Visit Information Start: 05/31/18 16:07 Freq: Status: Active Protocol: Document 06/21/18 10:36 LRN (Rec: 06/21/18 11:20 LRN [id number]) Out-Patient Physical Therapy Visit Information Visit Information Visit Type Treatment Note Visit Start Time 10:36 Visit Stop Time 11:15 Total Visit Minutes 39 Visit Number 4 Number of CRITICAL CARE REGISTERED NURSE Visits 1 Evaluation Information Evaluation Date 06/04/18 Precautions Precautions Uncontrolled HBP R carotid endarterectomy 2018 Discectomy L5-S1 01/22/2018, pt feeling not recovered from. Hard of hearing PT-OP-B Current Condition Start: 05/31/18 16:07 Freq: Status: Active Protocol: Document 06/04/18 13:35 LRN (Rec: 06/04/18 15:11 LRN [id number]) Current Condition History of Current Condition Onset Date 05/03/2018 Current Complaints Difficulty dressing, walking ( falling), getting in/out of boat. 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 Pt reports mild weakness of the L UE/LE and denies difficulty with swallowing or speech. He reports recent surgery on 2018 for Carotid endarterectomy and spinal stenosis L5 discectomy surgery at 01/22/2018 for which he states he had not recovered from when he had the stroke. He states his blood pressure is not under control but he is taking medications to try and get it under control. Future Testing and Treatments Planned Seeing Oral surgeon for a possible tooth extraction with implant. Treatment Goals Patient/Caregiver Goals Pt goal is to become active, put clothes on with ease because he has trouble putting his leg into his pants when dressing. He wants to be able to feel secure getting on/off his boat with giving SBA and he wants to be able to walk around the boat without falling. Prior Functional Status Baseline Function- ADL's Modified Independent Baseline Function- Mobility Independent Baseline Function- Gait Used cane for gait Baseline Function- Other Needs help finding arm holes when dressing. Current Functional Impairments (Reported) Functional Limitations- ADL's Difficulty dressing. Unstable walking with SPC Difficulty getting in/out of boat Functional Limitations- Mobility/Gait Unsteady, requires use of cane . Personal Factors Other Personal Factors That May Effect Uncontrolled HBP. Therapy/Recovery Has boat that he wants to be able to get in/out of. PT-OP-C Subjective Start: 05/31/18 16:07 Freq: Status: Active Protocol: Document 06/21/18 10:36 LRN (Rec: 06/21/18 11:20 LRN [id number]) OP-PT Subjective Patient Comments Patient Comments States his back hurts from lifting something too heavy. PT-OP-D Balance Start: 05/31/18 16:07 Freq: Status: Active Protocol: Document 06/04/18 13:35 LRN (Rec: 06/04/18 15:11 LRN [id number]) Balance Tests Single Limb Standing Single Limb- Right 0 Single Limb- Left 0 Perera Balance Assessment Evaluation Sitting to Standing Ability Several Tries w/Hands Unsupported Stance Supervision- 2 minutes Sitting Unsupported, Feet on Floor Safely- 2 minutes Standing to Sitting Ability Assist, Control w/Hands Transfer Ability Safely, Hand Use Unsupported Stance- Eyes Closed Safely, 10 seconds Unsupported Stance- Eyes Open Independent, 1 minute Reaching Forward Standing Safely, 5 inches Pick- Up Object From Floor Supervision Look Behind Shoulder - Standing Turns Sideways Only Turning 360 Degrees Turns slowly, but safely Unsupported Stance, Alternating Feet on Assist to Prevent Fall Stair Unsupported Tandem Stance Balance Lost- Step/Stand Unilateral Leg Stance Lifts Leg/Unable to Hold Total Score Perera Total Score (out of 56 points) 34 Perera Impairment Rating 20 to 39% Impaired (Score 34- 44) Tinetti Balance Assessment Sitting Balance Sitting Balance Steady, safe Arising from Chair Ability to Arise Able, uses arms to help Attempts to Arise Able, requires >1 attempt Standing Balance Immediate Standing Balance Steady with support Standing Balance Steady, wide stance Nudged Response Steady Standing with Eyes Closed Steady Turning Step Pattern Turning 360 Degrees Continuous steps Stability Turning 360 Degrees Steady Sitting Down Sitting Down Uses arms or unsteady Gait and Step Initiation of Gait No hesitancy Right Foot Step Length Does not pass stance ft. Right Foot Step Height Does not clear floor Left Foot Step Length Does not pass stance foot Left Foot Step Height Does not clear floor Step Description Step Symmetry Step length not equal Step Continuity Steps appear continuous Gait Description Path Description Mild/moderate deviation Trunk Description No sway but posturing Walking Stance Heels together Scoring and Interpretation Tinetti Composite Score (points) 16 Tinetti Impairment Rating from Composite 40 to <60% Impaired (Score 12- Score 16) PT-OP-E Functional Tests Start: 05/31/18 16:07 Freq: Status: Active Protocol: Document 06/14/18 11:17 LRN (Rec: 06/14/18 12:30 LRN [id number]) Functional Tests Timed Up and Go (TUG) Score 21 sec's TUG Impairment Rating 100% Impaired (Score 20) PT-OP-G Mobility & Gait Start: 05/31/18 16:07 Freq: Status: Active Protocol: Document 06/04/18 13:35 LRN (Rec: 06/07/18 08:09 LRN [id number]) OP Gait Assessment Gait Gait Assistance Required: Independent Able to Maintain Weight Bearing Status Yes During Gait Assistive Devices Assistive Device None Gait Deviations General Gait Pattern Decreased Stride Length Decreased Feet Clearance Flexed Trunk Narrow Based Gait Factors Limiting Gait Function Factors Limiting Gait Function Decreased Activity Tolerance Decreased Strength Limited Range of Motion Poor Balance PT-OP-H Neuro Start: 05/31/18 16:07 Freq: Status: Active Protocol: Document 06/14/18 11:17 LRN (Rec: 06/14/18 12:30 LRN [id number]) Vital Signs Blood Pressure Semi-reclined Blood Pressure (90/60-120/80 mmHg) 164/94 H Sitting Blood Pressure (90/60-120/80 mmHg) 148/96 H Blood Pressure Source Manual Cuff PT-OP-J Posture/Palpation/Skin Start: 05/31/18 16:07 Freq: Status: Active Protocol: Document 06/04/18 13:35 LRN (Rec: 06/04/18 15:11 LRN [id number]) Posture Evaluation Comments Posture Comments Standing pt leans right with upper body in R SB, increased kyphosis with a forward head, decreased lumbar lordosis. PT-OP-K Range of Motion Start: 05/31/18 16:07 Freq: Status: Active Protocol: Document 06/04/18 13:35 LRN (Rec: 06/04/18 15:11 LRN [id number]) Ankle and Foot Goniometric Range of Motion Ankle and Foot Measured in Degrees Right Active Ankle/Foot ROM WFL Yes Testing Position Sitting Left Active Ankle/Foot ROM WFL No Testing Position See comment below Ankle and Foot ROM Limitations ROM Limitations Soft Tissue Tightness Muscle Weakness Comments Decreased L ankle EV & IV by 20%. PT-OP-M Strength Start: 05/31/18 16:07 Freq: Status: Active Protocol: Document 06/04/18 13:35 LRN (Rec: 06/04/18 15:11 LRN [id number]) Trunk Strength Trunk Manual Muscle Testing Testing Position Sitting Comments Manual resistance with strength generally 5/5. Shoulder Strength Shoulder Manual Muscle Testing Right Comments Generally 5/5. Left External Rotation 3 Fair Comments Generally 4/5 except ER as indicated above Ankle/Foot Strength Ankle and Foot Manual Muscle Testing Right Comments Generally 5/5 Left Comments Generally 5/5 PT-OP-Q Treatments Start: 05/31/18 16:07 Freq: Status: Active Protocol: Document 06/21/18 10:36 LRN (Rec: 06/21/18 11:20 LRN [id number]) Therapeutic Exercises Sitting Exercises ankle strengthening Sitting Exercise Name Ankle EV, IV, DF, PF Side bilateral Resistance Level 2 Equipment Used thara band Reps/Minutes 15 x 2 each Standing Exercises sit to stand Standing Exercise Name from webbed chair Side bilateral Comments training without UE support Therapeutic Activity Therapeutic Activity Sit to Stand Reps/Minutes 15' Comments Pt tends to scoot forward on sit to stand, making guarding necessary. Extra time taken for training. Pt able to perform properly after training. Manual Therapy Treatment Other Other Manual Treatments BP @ start: 136/98. Self-Care/Home Management Treatment Education Patient Education Home Exercise Program Activities Self-Care/Home Management Activities Issued & reviewed HEP: Ankle ex's. Lev 2 T-Band issued. PT-OP-T Assessment and Plan Start: 05/31/18 16:07 Freq: Status: Active Protocol: Document 06/21/18 10:36 LRN (Rec: 06/21/18 11:20 LRN [id number]) Physical Therapy Assessment Assessment Summary Assessment Pt did not present with symptoms of poor ex tolerance related to his uncontrolled BP . His primary concern being a low drop in BP. Pt tolerated therapy well with no abnormal symptoms. Pt slow and steady with gait/SPC. Pt was able to perform sit to stand safely and without plopping after much training. Pt moves slowly through ex's. ABC Balance confidence scale score is 60% Physical Therapy Plan Frequency and Duration Frequency of Treatment 2x/Week Plan of Care Start Date 06/04/18 Plan of Care End Date 08/31/18 Next Visit Focus/Plan Next Note Type Treatment Note Next Visit Plan Monitor BP, HR. Try a quick review of ankle ex's. Cont with LE neural glide (L>R), & stretch to IV, EV followed by strengthening of ankle, knees, shoulders (ER/IR). Start postural training. HEP as appropriate. Progress balance and gait training as tolerated while monitoring BP.
--- NOTE | 2018-09-16 16:13 | PT.OPDS ---
Current Diagnoses Other cerebrovascular disease (06/21/18) Provider Visit Care Team Role Provider Type Beni Madera MD Family Provider Non-Staff Specialty: Neurosurgery Address: [address] [place] [address], [phone] Email: Ron Manriquez MD Attending Provider Physician Primary Care Provider Specialty: Internal Medicine Address: [address] [place] [address], [id number] Email: Visit Number Visit Number 4 Discharge Summary PT-OP-B Current Condition Start: 05/31/18 16:07 Freq: Status: Active Protocol: Document 06/04/18 13:35 LRN (Rec: 06/04/18 15:11 LRN [id number]) Current Condition History of Current Condition Onset Date 05/03/2018 Current Complaints Difficulty dressing, walking ( falling), getting in/out of boat. 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 Pt reports mild weakness of the L UE/LE and denies difficulty with swallowing or speech. He reports recent surgery on 2018 for Carotid endarterectomy and spinal stenosis L5 discectomy surgery at 01/22/2018 for which he states he had not recovered from when he had the stroke. He states his blood pressure is not under control but he is taking medications to try and get it under control. Future Testing and Treatments Planned Seeing Oral surgeon for a possible tooth extraction with implant. Treatment Goals Patient/Caregiver Goals Pt goal is to become active, put clothes on with ease because he has trouble putting his leg into his pants when dressing. He wants to be able to feel secure getting on/off his boat with giving SBA and he wants to be able to walk around the boat without falling. Prior Functional Status Baseline Function- ADL's Modified Independent Baseline Function- Mobility Independent Baseline Function- Gait Used cane for gait Baseline Function- Other Needs help finding arm holes when dressing. Current Functional Impairments (Reported) Functional Limitations- ADL's Difficulty dressing. Unstable walking with SPC Difficulty getting in/out of boat Functional Limitations- Mobility/Gait Unsteady, requires use of cane . Personal Factors Other Personal Factors That May Effect Uncontrolled HBP. Therapy/Recovery Has boat that he wants to be able to get in/out of. PT-OP-T Assessment and Plan Start: 05/31/18 16:07 Freq: Status: Active Protocol: Document 09/16/18 16:06 LRN (Rec: 09/16/18 16:13 LRN [id number]) Physical Therapy Assessment Goals HEP Impairment Pt lacks self fci exercise program. Detention Goal (LTG) Pt will be independent in a self care HEP. LTG Duration 08/31/18 Strength Impairment Decreased functional strength for donning pants Detention Goal (LTG) Pt will be able to don/doff his clothes when dressing without assist (pants, coat). LTG Duration 08/31/18 Gait Impairment Decreased safety with gait per Tinetti Gait score of 5/12 ( 40<60% impaired) Detention Goal (LTG) Improve safety with gait per Tinetti gait score of no greater than 1>20% impairment. LTG Duration 08/31/18 Balance Impairment Decreased balance per DOWNS Balance is 31/56 (20<40% impaired) Decal Decorator Goal (LTG) Pt will demonstrate improved balance for increased safety with gait per improved DOWNS Balance of 1<20% impaired score. LTG Duration 08/06/18 L Ankle mobility Impairment Decreased L ankle mobility resulting in decreased single leg balance. Short Term Goal (STG) Normalize L ankle active mobility (primarily IV/EV) with improved ability for SLS. STG Duration 06/25/18 Progress Towards Goals Progress Comments L Ankle mobility: Not addressed. Balance: Not addressed. Gait: Initiated activity. Strength: Not addressed. HEP: Neural glide ex. issued. Assessment Summary Assessment Pt was seen for 3 PT rehabilitation sessions and canceled his remaining appointments; therefore the pt is being discharged due to lack of attendance. Pt was unavailable for inal assessment. Physical Therapy Plan Discharge Physical Therapy Discharge Reasons No Longer Attending PT Discharge Comments See assessment above. Pt plan of care has ; therefore a new referral is needed for pt to return to physical therapy.
== END 2018-06-21 13:43 ==
LOC: PHYS 10:30
PROVIDERS: Family Provider Neurological Surgery; PCP Internal Medicine; Visit Provider Internal Medicine
DX: I67.89 Other cerebrovascular disease (principal)
CPT/HCPCS: 97110; 97112; 97163; 97530; 97535

== ENCOUNTER → 2018-09-17 12:44 | Outpatient (CLI) | payer MEDICARE, OTHER, SELFPAY ==
--- NOTE | 2018-09-17 | DI.CT.S_ITS ---
PROCEDURE: CT ABDOMEN PELVIS WO CON INDICATIONS: Epigastric swelling, mass or lump TECHNIQUE: Noncontrast 5 mm thick sections acquired from the diaphragms to the symphysis. 5 mm coronal and sagittal reformats were then performed. For radiation dose reduction, the following was used: automated exposure control, adjustment of mA and/or kV according to patient size. COMPARISON: [facility], CT, ABDOMEN/PELVIS WITH CONTRAST, 08/06/2012, 9:29. FINDINGS: Image quality: Excellent. ABDOMEN: Lung bases: Lung bases are clear. Left posterior diaphragmatic hernia measuring 9.2 x 7.3 cm containing fat. This is grossly unchanged since 08/06/12 Heart size is normal. Coronary artery calcifications are present. Solid organs: Liver is normal in size. Gallbladder contracted otherwise unremarkable. Pancreas is normal in contours. Spleen is normal in size. No adrenal nodules. No hydronephrosis. Punctate left renal calculus image 31 series 2. Simple appearing right renal cyst measuring 5 cm. Peritoneum and bowel: Unenhanced bowel loops demonstrate normal wall thickness and caliber. No free fluid or air. Colonic diverticulosis is seen without evidence of acute complication. Nodes and vessels: No retroperitoneal or mesenteric adenopathy by size criteria. Aorta and inferior vena cava are normal in caliber. Miscellaneous: Umbilical fat containing hernia is unchanged. PELVIS: Genitourinary: Bladder wall thickness is normal. Miscellaneous: Bilateral fat containing inguinal hernias, left larger than right, although unchanged. No pelvic adenopathy. Bones: No suspicious bony lesions. Diffuse thoracic and lumbar spondylosis and facet arthropathy No vertebral body compression fractures. IMPRESSION: No acute process identified. Large Bochdalek fat-containing hernia, which appears unchanged. Additional umbilical and bilateral inguinal hernias also appear grossly unchanged. Coronary artery disease. Nonobstructive left renal calculus. Simple appearing right renal cyst. Incidental colonic diverticulosis. Dictated by: Jose Alfredo Mohamud M.D. on 09/17/2018 at 14:16 Approved by: Jose Alfredo Mohamud M.D. on 09/17/2018 at 14:23
== END ==
PROVIDERS: Family Provider Neurological Surgery; PCP Internal Medicine; Visit Provider Internal Medicine
DX: R19.06 Epigastric swelling, mass or lump (principal); N20.0 Calculus of kidney; N28.1 Cyst of kidney, acquired; K57.90 Diverticulosis of intestine, part unspecified, without perforation or abscess without bleeding; K42.9 Umbilical hernia without obstruction or gangrene; K40.20 Bilateral inguinal hernia, without obstruction or gangrene, not specified as recurrent; I25.10 Atherosclerotic heart disease of native coronary artery without angina pectoris; K44.9 Diaphragmatic hernia without obstruction or gangrene
CPT/HCPCS: 74176

== ENCOUNTER → 2018-12-25 14:53 | Outpatient (CLI) | payer MEDICARE, OTHER, SELFPAY ==
--- NOTE | 2018-12-25 | DI.RAD.S_ITS ---
PROCEDURE: XR HIP W PEL IF DONE RT 2V INDICATIONS: UNSPECIFIED OSTEOARTHRITIS, UPSPECIFIED SITE TECHNIQUE: AP pelvis with lateral view(s) of the right hip(s). COMPARISON: None. FINDINGS: Bones: No fractures or dislocations. Pelvic ring appears intact. No suspicious bony lesions. Severe right hip degeneration. Mild left hip degenerative joint disease. Lower lumbar spondylosis. Soft tissues: The visualized bowel gas pattern is normal. No suspicious soft tissue calcifications. Scattered vascular calcifications. IMPRESSION: Bilateral hip degeneration, right greater left. Lower lumbar spondylosis. Dictated by: Jose Alfredo Mohamud M.D. on 12/25/2018 at 17:14 Approved by: Jose Alfredo Mohamud M.D. on 12/25/2018 at 17:16
== END ==
PROVIDERS: PCP Internal Medicine; Visit Provider Internal Medicine
DX: M16.0 Bilateral primary osteoarthritis of hip (principal); M47.816 Spondylosis without myelopathy or radiculopathy, lumbar region
CPT/HCPCS: 73502

== ENCOUNTER → 2019-02-08 15:30 | Outpatient (CLI) | payer MEDICARE, OTHER, SELFPAY ==
--- NOTE | 2019-02-08 | DI.MRI.S_ITS ---
PROCEDURE: MR LUMBAR SPINE WO CON INDICATIONS: Other intervertebral disc degeneration, lumbar reg TECHNIQUE: Noncontrast sagittal T1 spin echo and T2 fast echo, sagittal STIR, axial T1 and T2 fast spin echo through the lumbar spine. In cases with scoliosis, additional coronal T2 fast spin echo may be performed. COMPARISON: [facility], MR, L-SPINE WITHOUT CONTRAST, 01/18/2017, 10:12. FINDINGS: Image quality: Excellent. Alignment and Curvature: There is trace T12 on L1 and L1 on L2 retrolisthesis, unchanged from the MRI dated 01/18/17. Bone Marrow: Marrow is of normal overall signal. No acute vertebral body compression fractures. Schmorl's nodes are present at the L4-5 disc interspace. Reactive endplate changes are present in the visualized portions of the lower thoracic spine. Spinal Cord: Conus medullaris terminates at the T12 level. Visualized cord demonstrates normal signal and size. Paraspinous Soft Tissues: No paravertebral masses. L1-L2: Moderate disc desiccation and height loss. Moderate facet and ligamentum flavum hypertrophy. Moderate right neuroforaminal narrowing. No left foraminal narrowing. The extent of right neuroforaminal narrowing is slightly increased when compared with the prior MRI dated 01/18/17. L2-L3: Moderate disc desiccation and height loss. Broad-based disc bulge. Mild facet and ligamentum flavum hypertrophy. Mild right neuroforaminal narrowing. No left foraminal stenosis. These findings are unchanged. L3-L4: Moderate disc desiccation and height loss. Broad-based disc bulge. Moderate facet ligamentum flavum hypertrophy. No canal stenosis. Moderate bilateral neuroforaminal stenosis. These findings are unchanged in the prior study. L4-L5: Moderate to severe disc desiccation and height loss. Epidural lipomatosis. Severe facet ligamentum flavum hypertrophy. Severe canal stenosis. The extent of canal stenosis and epidural lipomatosis has increased when compared with the prior study. Moderate to severe facet sclerosis. Severe right and moderate left foraminal stenosis. The degree of foraminal narrowing is increased in severity when compared with the prior study. L5-S1: Moderate disc desiccation and height loss. Broad-based disc bulge. Epidural lipomatosis. Severe facet ligamentum flavum hypertrophy. Severe canal stenosis. Severe bilateral neuroforaminal narrowing with flattening of the exiting nerve roots. These findings are similar in extent to the prior study. IMPRESSION: 1. Moderate disc desiccation and height loss throughout the lumbar spine. 2. Increased epidural lipomatosis, facet ligamentum flavum hypertrophy, and increased canal stenosis at L4-5 when compared with the MRI dated 01/18/17. 3. Increased bilateral neuroforaminal narrowing at L4-5 when compared with the prior MRI. 4. Severe bilateral foraminal stenosis at L5-S1 with flattening of the exiting nerve roots similar in extent to the prior MRI. Dictated by: Josy Velazquez M.D. on 02/08/2019 at 15:53 Approved by: Josy Velazquez M.D. on 02/08/2019 at 16:02
== END ==
PROVIDERS: PCP Internal Medicine; Visit Provider Internal Medicine
DX: M51.36 Other intervertebral disc degeneration, lumbar region (principal); M48.061 Spinal stenosis, lumbar region without neurogenic claudication; E88.2 Lipomatosis, not elsewhere classified
CPT/HCPCS: 72148

== ENCOUNTER → 2019-10-02 15:04 | Outpatient (CLI) | payer MEDICARE, OTHER, SELFPAY ==
[2019-10-02 16:20] LABS: Aspartate Aminotransferase 28 IU/L (17-59); Blood Urea Nitrogen 16 mg/dL (9-20); Calcium 9.3 mg/dL (8.4-10.2); Carbon Dioxide 34 mmol/L (22-32); Chloride 101 mmol/L (98-107); Cholesterol 182 mg/dL (140-199); Estimated Glomerular Filt Rate > 60.0 mL/min (>60); Glucose 117 mg/dL (80-110); HDL Cholesterol 55 mg/dL (40-60); HEMOLYSIS < 15 (0-50); LDL Cholesterol Calculated 89 mg/dL (<100); Potassium 3.4 mmol/L (3.4-5.1); Sodium 139 mmol/L (137-145); Triglycerides 189 mg/dL (35-150)
== END ==
PROVIDERS: PCP Internal Medicine; Referring Provider Internal Medicine; Visit Provider Internal Medicine
DX: I10 Essential (primary) hypertension (principal); E78.2 Mixed hyperlipidemia
CPT/HCPCS: 36415; 80048; 80061; 84450

== ENCOUNTER → 2021-06-11 12:26 | Outpatient (CLI) | payer MEDICARE, OTHER, SELFPAY ==
[2021-06-11 12:52] LABS: Add Manual Diff / Slide Review NO; Basophils Absolute Auto 0 /uL (0-100); Basophils Percent Auto 0.7 % (0-2); Eosinophils Absolute Auto 200 /uL (0-450); Eosinophils Percent Auto 3.6 % (2-4); Hemoglobin 13.8 g/dL (13.5-17.5); Lymphocytes Absolute Auto 1400 /uL (1100-4500); Mean Corpuscular HGB Conc 33.6 % (30-36); Mean Corpuscular Hemoglobin 30.7 PG (26-34); Mean Corpuscular Volume 91.4 fL (80-100); Monocytes Absolute Auto 600 /uL (0-900); Neutrophils Absolute Auto 4400 /uL (1500-7000); Neutrophils Percent Auto 65.7 % (50-75); Platelet Count 222 X10^3/uL (150-400); Red Blood Cell Count 4.49 X10^6/uL (4.5-5.9); Red Cell Distribution Width 14.5 % (11.6-14.8); White Blood Cell Count 6.6 X10^3/uL (4.5-11.0)
[2021-06-11 13:03] LABS: Alanine Aminotransferase 26 IU/L (<50); Albumin 4.2 g/dL (3.5-5.0); Albumin Globulin Ratio 1.4 (1.0-2.8); Alkaline Phosphatase 67 U/L (38-126); Aspartate Aminotransferase 26 IU/L (17-59); BUN Creatinine Ratio 21.8 (6-22); Bilirubin Total 0.8 mg/dL (0.2-1.3); Blood Urea Nitrogen 29 mg/dL (9-20); Calcium 8.8 mg/dL (8.4-10.2); Carbon Dioxide 33 mmol/L (22-32); Chloride 99 mmol/L (98-107); Cholesterol 131 mg/dL (140-199); Estimated Glomerular Filt Rate 51.2 mL/min (>60); Globulin 2.9 g/dL (1.7-4.1); Glucose 114 mg/dL (80-110); HDL Cholesterol 65 mg/dL (40-60); HEMOLYSIS < 15 (0-50); LDL Cholesterol Calculated 47 mg/dL (<100); Potassium 4.4 mmol/L (3.4-5.1); Sodium 138 mmol/L (137-145); Total Protein 7.1 g/dL (6.3-8.2); Triglycerides 93 mg/dL (35-150)
[2021-06-11 13:34] LABS: TSH w/ Reflex to FT4 3.34 uIU/mL (0.47-4.68)
== END ==
PROVIDERS: PCP Internal Medicine; Referring Provider Internal Medicine; Visit Provider Internal Medicine
DX: I25.10 Atherosclerotic heart disease of native coronary artery without angina pectoris (principal); I48.0 Paroxysmal atrial fibrillation; I67.9 Cerebrovascular disease, unspecified; I50.22 Chronic systolic (congestive) heart failure
CPT/HCPCS: 36415; 80053; 80061; 84443; 85025

== ENCOUNTER → 2021-07-19 14:18 | Outpatient (CLI) | payer MEDICARE, OTHER, SELFPAY ==
[2021-07-19 17:20] LABS: BUN Creatinine Ratio 26.2 (6-22); Blood Urea Nitrogen 28 mg/dL (9-20); Calcium 8.5 mg/dL (8.4-10.2); Carbon Dioxide 31 mmol/L (22-32); Chloride 101 mmol/L (98-107); Estimated Glomerular Filt Rate > 60 mL/min (>60); Glucose 139 mg/dL (80-110); HEMOLYSIS 20 (0-50); Potassium 4.3 mmol/L (3.4-5.1); Sodium 138 mmol/L (137-145)
== END ==
PROVIDERS: PCP Internal Medicine; Referring Provider Internal Medicine; Visit Provider Internal Medicine
DX: N17.9 Acute kidney failure, unspecified (principal)
CPT/HCPCS: 36415; 80048

== ENCOUNTER → 2021-09-13 11:10 | Outpatient (CLI) | payer MEDICARE, OTHER, SELFPAY ==
[2021-09-13 13:21] LABS: BUN Creatinine Ratio 20.2 (6-22); Blood Urea Nitrogen 22 mg/dL (9-20); Calcium 8.8 mg/dL (8.4-10.2); Carbon Dioxide 33 mmol/L (22-32); Chloride 99 mmol/L (98-107); Estimated Glomerular Filt Rate > 60 mL/min (>60); Glucose 97 mg/dL (80-110); HEMOLYSIS < 15 (0-50); Potassium 4.2 mmol/L (3.4-5.1); Sodium 138 mmol/L (137-145)
== END ==
PROVIDERS: PCP Internal Medicine; Referring Provider Internal Medicine Cardiovascular Disease; Visit Provider Internal Medicine Cardiovascular Disease
DX: I48.0 Paroxysmal atrial fibrillation (principal); I25.5 Ischemic cardiomyopathy
CPT/HCPCS: 36415; 80048

== ENCOUNTER → 2022-03-10 14:51 | Outpatient (CLI) | payer MEDICARE, OTHER, SELFPAY ==
[2022-03-10 15:49] LABS: Hematocrit 41.5 % (41-53); Hemoglobin 13.9 g/dL (13.5-17.5); Mean Corpuscular HGB Conc 33.4 % (30-36); Mean Corpuscular Hemoglobin 30.7 PG (26-34); Mean Corpuscular Volume 91.8 fL (80-100); Platelet Count 204 X10^3/uL (150-400); Red Blood Cell Count 4.52 X10^6/uL (4.5-5.9); Red Cell Distribution Width 13.3 % (11.6-14.8); White Blood Cell Count 4.7 X10^3/uL (4.5-11.0)
[2022-03-10 16:18] LABS: Alanine Aminotransferase 20 IU/L (<50); Albumin 4.1 g/dL (3.5-5.0); Albumin Globulin Ratio 1.5 (1.0-2.8); Alkaline Phosphatase 45 U/L (38-126); Aspartate Aminotransferase 30 IU/L (17-59); BUN Creatinine Ratio 21.4 (6-22); Bilirubin Total 0.7 mg/dL (0.2-1.3); Blood Urea Nitrogen 22 mg/dL (9-20); Calcium 8.6 mg/dL (8.4-10.2); Carbon Dioxide 31 mmol/L (22-32); Chloride 100 mmol/L (98-107); Cholesterol 125 mg/dL (140-199); Estimated Glomerular Filt Rate > 60 mL/min (>60); Globulin 2.7 g/dL (1.7-4.1); Glucose 74 mg/dL (80-110); HDL Cholesterol 55 mg/dL (40-60); HEMOLYSIS 33 (0-50); LDL Cholesterol Calculated 46 mg/dL (<100); Potassium 4.1 mmol/L (3.4-5.1); Sodium 138 mmol/L (137-145); Total Protein 6.8 g/dL (6.3-8.2); Triglycerides 120 mg/dL (35-150)
== END ==
PROVIDERS: PCP Internal Medicine; Referring Provider Internal Medicine; Visit Provider Internal Medicine
DX: E78.2 Mixed hyperlipidemia (principal); I10 Essential (primary) hypertension; I25.10 Atherosclerotic heart disease of native coronary artery without angina pectoris
CPT/HCPCS: 36415; 80053; 80061; 85027

== ENCOUNTER → 2022-06-24 15:48 | Outpatient (CLI) | payer MEDICARE, OTHER, SELFPAY ==
--- NOTE | 2022-06-24 15:50 | DI.US.S_ITS ---
PROCEDURE: US CAROTID DOPPLER BI INDICATIONS: CAD TECHNIQUE: Color and pulse Doppler interrogation was performed of both carotid systems, with image documentation and velocity measurements. COMPARISON: [facility], , CAROTID DOPPLER BI, 07/27/2017, 10:27. FINDINGS: Stenosis calculations are based on SRU (Society of Radiologists in Ultrasound) criteria. The flow velocities and the arterial waveforms are normal within both carotid arterial systems. Atherosclerotic plaque is seen on both sides. The estimated degree of internal carotid artery stenosis is less than 50%. Antegrade flow is confirmed within the right vertebral artery. The left vertebral artery is not seen on these images. IMPRESSION: No hemodynamically significant stenosis is seen. Atherosclerotic plaque is noted bilaterally. Dictated by: Solo Machado M.D. on 06/27/2022 at 12:38 Approved by: Solo Machado M.D. on 06/27/2022 at 12:41
== END ==
PROVIDERS: PCP Internal Medicine; Referring Provider Internal Medicine; Visit Provider Internal Medicine
DX: I65.23 Occlusion and stenosis of bilateral carotid arteries (principal); I25.10 Atherosclerotic heart disease of native coronary artery without angina pectoris
CPT/HCPCS: 93880

== ENCOUNTER → 2023-01-09 16:21 | Outpatient (CLI) | payer MEDICARE, OTHER, SELFPAY ==
[2023-01-09 16:57] LABS: Hemoglobin 14.1 g/dL (13.5-17.5); Mean Corpuscular HGB Conc 34.4 % (30-36); Mean Corpuscular Hemoglobin 31.4 PG (26-34); Mean Corpuscular Volume 91.4 fL (80-100); Platelet Count 196 X10^3/uL (150-400); Red Blood Cell Count 4.48 X10^6/uL (4.5-5.9); Red Cell Distribution Width 13.4 % (11.6-14.8); White Blood Cell Count 5.4 X10^3/uL (4.5-11.0)
[2023-01-09 17:24] LABS: Aspartate Aminotransferase 29 IU/L (17-59); BUN Creatinine Ratio 25.5 (6-22); Blood Urea Nitrogen 26 mg/dL (9-20); Carbon Dioxide 31 mmol/L (22-32); Chloride 100 mmol/L (98-107); Cholesterol 150 mg/dL (140-199); Estimated Glomerular Filt Rate > 60 mL/min (>60); Glucose 102 mg/dL (80-110); HDL Cholesterol 58 mg/dL (40-60); HEMOLYSIS < 15 (0-50); LDL Cholesterol Calculated 64 mg/dL (<100); Potassium 4.1 mmol/L (3.4-5.1); Sodium 137 mmol/L (137-145); Triglycerides 140 mg/dL (35-150)
== END ==
PROVIDERS: PCP Internal Medicine; Referring Provider Internal Medicine; Visit Provider Internal Medicine
DX: E78.2 Mixed hyperlipidemia (principal); I10 Essential (primary) hypertension; Z79.01 Long term (current) use of anticoagulants; I48.0 Paroxysmal atrial fibrillation
CPT/HCPCS: 36415; 80048; 80061; 84450; 85027

== ENCOUNTER → 2023-09-06 13:43 | Outpatient (CLI) | payer MEDICARE, OTHER, SELFPAY ==
--- NOTE | 2023-09-06 13:45 | DI.US.S_ITS ---
PROCEDURE: US SOFT TISSUE HEAD AND NECK INDICATIONS: r/o right side suppurative parotitis TECHNIQUE: Real-time scanning was performed of the neck region of interest, with image documentation. COMPARISON: None. FINDINGS: A clinically evident is erythema and swelling superficial to the parotid gland which measures 1.5 x 5.5 x 6.0 cm. Internal vascularity is preserved. No abscess is identified. IMPRESSION: Presumed inflammatory process involving the parotid gland on the right but without ductal distension, or internal abscess formation. Depending on the clinical status additional assessment may be warranted by CT or MRI contrast-enhanced scanning. Dictated by: Josh Villaseñor M.D. on 09/06/2023 at 14:44 Approved by: Josh Villaseñor M.D. on 09/06/2023 at 14:46
== END ==
PROVIDERS: PCP Internal Medicine; Referring Provider Nurse Practitioner Family; Visit Provider Nurse Practitioner Family
DX: R60.0 Localized edema (principal)
CPT/HCPCS: 76536

== ENCOUNTER → 2023-09-08 | Outpatient (CLI) | payer MEDICARE, OTHER, SELFPAY ==
--- NOTE | 2023-09-08 15:06 | DI.CT.S_ITS ---
PROCEDURE: CT SOFT TISSUE NECK W CON INDICATIONS: Acute parotitis TECHNIQUE: After the administration of intravenous contrast, 3.0 mm axial sections acquired from the sella to the aortic arch. Additional oblique axial 3.0 mm sections acquired through the pharynx. 3 mm thick coronal and sagittal reformats were generated. For radiation dose reduction, the following was used: automated exposure control. COMPARISON: [facility], , SOFT TISSUE HEAD AND NECK, 09/06/2023, 14:07. FINDINGS: Skull Base: The visualized intracranial contents, skull, and orbits are unremarkable. Visualized paranasal sinuses are clear. Pharynx and Larynx: The nasopharyngeal airway is patent and midline. Parapharyngeal soft tissues including palatine tonsils and base of the tongue are normal. Retropharyngeal space unremarkable. Normal appearance of the false and true vocal cords. Muscles and Fascial Planes: Fascial planes are well maintained. No abscess or mass lesion. Lymph Nodes: No evidence of adenopathy. Vasculature: Unremarkable. Submandibular and Parotid Glands: Right parotid gland is asymmetrically enlarged mild inflammatory changes present. No calculi, abscess or mass lesion. Scattered lymph nodes inferior to the gland are prominent and appear reactive without evidence of adenopathy Thyroid: Unremarkable. No enlarged or calcified nodules. Bones: No acute fracture. No osteolytic or blastic lesion is evident. Normal bone mineralization. Degenerative disc disease and arthropathy Lung Apices: The visualized lung apices are clear. IMPRESSION: Right parotiditis without calculi or mass lesion Approved by: Abundio Brown M.D. on 09/08/2023 at 16:53
--- NOTE | 2023-09-08 15:29 | EKG_ITS ---
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
[2023-09-08 15:34] LABS: Estimated Glomerular Filt Rate > 60 mL/min (>60)
== END ==
LOC: CT 15:06
PROVIDERS: Radiology Diagnostic Radiology; PCP Internal Medicine; Referring Provider Nurse Practitioner Family; Visit Provider Nurse Practitioner Family
DX: K11.21 Acute sialoadenitis (principal); R60.0 Localized edema
CPT/HCPCS: 36415; 70491; 82565; 93005; Q9967

== ENCOUNTER → 2024-05-13 12:59 | Outpatient (CLI) | payer MEDICARE, OTHER, SELFPAY ==
[2024-05-13 13:36] LABS: Hematocrit 45.2 % (41-53); Hemoglobin 15.2 g/dL (13.5-17.5); Mean Corpuscular HGB Conc 33.6 % (30-36); Mean Corpuscular Hemoglobin 31.4 PG (26-34); Mean Corpuscular Volume 93.3 fL (80-100); Platelet Count 229 X10^3/uL (150-400); Red Blood Cell Count 4.84 X10^6/uL (4.5-5.9); Red Cell Distribution Width 13.1 % (11.6-14.8); White Blood Cell Count 5.9 X10^3/uL (4.5-11.0)
[2024-05-13 13:51] LABS: Alanine Aminotransferase 20 IU/L (<50); Albumin 4.7 g/dL (3.5-5.0); Albumin Globulin Ratio 1.7 (1.0-2.8); Alkaline Phosphatase 52 U/L (38-126); Aspartate Aminotransferase 33 IU/L (17-59); BUN Creatinine Ratio 20.3 (6-22); Bilirubin Total 1.1 mg/dL (0.2-1.3); Blood Urea Nitrogen 24 mg/dL (9-20); Calcium 9.1 mg/dL (8.4-10.2); Carbon Dioxide 30 mmol/L (22-32); Chloride 99 mmol/L (98-107); Cholesterol 162 mg/dL (140-199); Estimated Glomerular Filt Rate 60 mL/min (>60); Globulin 2.7 g/dL (1.7-4.1); Glucose 150 mg/dL (80-110); HDL Cholesterol 61 mg/dL (40-60); HEMOLYSIS < 15 (0-50); LDL Cholesterol Calculated 73 mg/dL (<100); Potassium 4.3 mmol/L (3.4-5.1); Sodium 139 mmol/L (137-145); Total Protein 7.4 g/dL (6.3-8.2); Triglycerides 140 mg/dL (35-150)
[2024-05-13 14:22] LABS: TSH w/ Reflex to FT4 1.85 uIU/mL (0.47-4.68)
== END ==
PROVIDERS: PCP Internal Medicine; Referring Provider Internal Medicine; Visit Provider Internal Medicine
DX: E78.2 Mixed hyperlipidemia (principal); I25.10 Atherosclerotic heart disease of native coronary artery without angina pectoris; I48.0 Paroxysmal atrial fibrillation
CPT/HCPCS: 36415; 80053; 80061; 84443; 85027